=== PATIENT | female | born 1965 | race Caucasian/White ===

== ENCOUNTER → 2017-07-06 | Outpatient (CLI) | payer OTHER ==
[~2017-07-06] MED LIST: BUPR-83 PO; CLIN300C2 PO; HYDR-5688 PO; LEVO112T2 PO; MULT-506 PO; PENI250T3 PO; PRED10PA4 PO; SYN112 PO
--- NOTE | 2017-07-06 16:48 | DIAGNOSTIC IMAGING REPORT ---
ULTRASOUND OF THE PELVIS CLINICAL HISTORY: Postmenopausal vaginal bleeding. COMPARISON STUDY: Pelvic ultrasound dated 03/06/2009. TECHNIQUE: Real-time, grayscale, and color flow sonography of the pelvis is performed both transabdominally and endovaginally. Images are reviewed in the transverse and longitudinal planes. FINDINGS: Uterus: The retroflexed uterus is normal in size and echotexture, measuring 7.7 x 3.7 x 5.0 cm. Endometrium: The endometrium is normal in appearance, and the endometrial stripe is normal in thickness measuring up to 0.7 cm. Ovaries: The right ovary is normal as visualized, measuring 2.0 x 1.8 x 1.2 cm. The left ovary was not seen normal Doppler waveforms are shown within the right ovary. Pelvis: There is no free fluid in the cul-de-sac. No concerning adnexal lesion is seen. IMPRESSION: 1. The endometrial stripe measures up to 7 mm in thickness. This may be abnormally thickened as the patient is reportedly postmenopausal. Follow-up with the patient's chicken boner is recommended. 2. The right ovary is normal as visualized. The left ovary was not seen. Electronically signed by: Panda Tomlinson M.D. 07/06/2017 4:46 PM Dictated Date/Time: 07/06/2017 4:32 PM
--- NOTE | 2017-07-06 16:48 | DIAGNOSTIC IMAGING REPORT ---
ULTRASOUND OF THE PELVIS CLINICAL HISTORY: Postmenopausal vaginal bleeding. COMPARISON STUDY: Pelvic ultrasound dated 03/06/2009. TECHNIQUE: Real-time, grayscale, and color flow sonography of the pelvis is performed both transabdominally and endovaginally. Images are reviewed in the transverse and longitudinal planes. FINDINGS: Uterus: The retroflexed uterus is normal in size and echotexture, measuring 7.7 x 3.7 x 5.0 cm. Endometrium: The endometrium is normal in appearance, and the endometrial stripe is normal in thickness measuring up to 0.7 cm. Ovaries: The right ovary is normal as visualized, measuring 2.0 x 1.8 x 1.2 cm. The left ovary was not seen normal Doppler waveforms are shown within the right ovary. Pelvis: There is no free fluid in the cul-de-sac. No concerning adnexal lesion is seen. IMPRESSION: 1. The endometrial stripe measures up to 7 mm in thickness. This may be abnormally thickened as the patient is reportedly postmenopausal. Follow-up with the patient's stress test technician is recommended. 2. The right ovary is normal as visualized. The left ovary was not seen. Electronically signed by: Panda Tomlinson M.D. 07/06/2017 4:46 PM Dictated Date/Time: 07/06/2017 4:32 PM
== END | disposition home or self-care (01) ==
LOC: C.ULTR 15:23
PROVIDERS: ATTEND Family Medicine
DX: N93.9 Abnormal uterine and vaginal bleeding, unspecified (principal); N95.0 Postmenopausal bleeding

== ENCOUNTER 2017-07-14 05:19 | Emergency (ER) | payer OTHER ==
[~2017-07-14] VITALS: Ht 182.9 cm; Wt 89.1 kg
[~2017-07-14 05:19] MED LIST changes: -CLIN300C2 PO; -HYDR-5688 PO; -LEVO112T2 PO; -PENI250T3 PO
[2017-07-14 05:22] VITALS: TEMP 37.5; Ht 182.9 cm; Wt 89.1 kg
[2017-07-14] MEDS ORDERED: CLINDAMYCIN IV 900 MG in DEXTROSE 5% ADD-VANTAGE 100ML 100 ML IV ONE (05:45)
[2017-07-14] MEDS ORDERED: OPTIRAY 320 IV PRN ×2 (05:45)
--- NOTE | 2017-07-14 05:58 | EMERGENCY ROOM VISIT NOTE ---
History First contact with patient: 05:27 Chief Complaint: DENTAL PAIN Stated Complaint: SWOLLEN FACE, ABCESS TOOTH Nursing Triage Summary: pt ambulatory to triage, states "over the weekend i was having tooth pain, yesterday i went to see the dentist. he gave me antibiotics and something for pain. but it did nothing for the swelling, it like got worse over night." pt states dentist is planning to pull tooth on thursday but was recommended to come to the ER when she called dentist this am. placed on norco and penicillin. swelling noted on left side of face. History of Present Illness The patient is a 51 year old female who presents to the Emergency Room with complaints of left lower dental pain. The patient states that she has had dental pain for the past 4 days. She reports that she has had issues with the tooth previously and figured that the pain would go away. She states the pain became constant and she decided to see a dentist yesterday. She states that the dentist placed her on penicillin and [place] and scheduled an appointment for an extraction next week. She states that overnight, she noticed increased swelling of the left side of the face. She states it has been hard for her to swallow. She denies fevers or difficulty breathing. She rates her discomfort a 6/10 and states the pain is throbbing. The pain has slightly improved since starting the penicillin and [place]. Review of Systems A complete 10 point review of systems was reviewed with the patient with pertinent positives and negatives as per history of present illness. All else were negative. Past Medical/Surgical History Medical Problems: (1) Hypothyroidism Social History Smoking Status: Never Smoker Alcohol Use: none Marital Status: Housing Status: lives with family, lives with significant other Occupation Status: employed Current/Historical Medications Scheduled Bupropion (Wellbutrin), 200 MG PO BID Clindamycin Hcl (Cleocin), 300 MG PO QID Levothyroxine Sodium (Synthroid), 112 MCG PO DAILY Penicillin V Potassium (Veetids), 1 TAB PO UD Scheduled PRN Hydrocodone/Acetaminophen 5MG/325MG ([place] 5MG/325MG), 1 TABLET PO UD PRN for Pain Physical Exam Vital Signs Date Time Temp Pulse Resp B/P (MAP) Pulse Ox O2 Delivery O2 Flow Rate FiO2 07/14/17 05:22 37.5 79 18 123/64 95 Room Air Physical Exam VITALS: Vitals are noted on the nurse's note and reviewed by myself. Vital signs stable. GENERAL: This is a 51-year-old female, in no acute distress, well-developed well -nourished. SKIN: The skin was without rashes. EARS: External auditory canals clear, tympanic membranes pearly cortes without erythema or effusion bilaterally. EYES: Pupils equal round and reactive to light and accommodation. MOUTH: There is left lower facial swelling with tenderness to palpation. Mucous membranes are moist. There is no evidence of an obvious drainable abscess within the mouth. No drainage. No tenderness to palpation of the fourth mouth. Airway patent. NECK: Supple without nuchal rigidity. No lymphadenopathy. HEART: Regular rate and rhythm without murmurs gallops or rubs. LUNGS: Clear to auscultation bilaterally without wheezes, rales or rhonchi. NEURO: Patient was alert and oriented to person place and time. Medical Decision & Procedures ER Provider Diagnostic Interpretation: Per statrad interpretation: CT MAXILLOFACIAL: Moderate soft tissue swelling about the left mandible which may represent cellulitis. No definite evidence of a dental abscess. No acute fracture or osteomyelitis. Minimal mucosal thickening of paranasal sinuses. Radiologist: Beto Asif MD Laboratory Results 07/14/17 05:40 Red Blood Count 4.56, Mean Corpuscular Volume 89.7, Mean Corpuscular Hemoglobin 30.5, Mean Corpuscular Hemoglobin Concent 34.0, Mean Platelet Volume 10.2, Neutrophils (%) (Auto) 72.1, Lymphocytes (%) (Auto) 14.7, Monocytes (%) (Auto) 9.7, Eosinophils (%) (Auto) 3.1, Basophils (%) (Auto) 0.2, Neutrophils # (Auto) 6.09, Lymphocytes # (Auto) 1.24, Monocytes # (Auto) 0.82, Eosinophils # (Auto) 0.26, Basophils # (Auto) 0.02 07/14/17 05:40 Test 07/14/17 05:40 07/14/17 05:47 White Blood Count 8.45 K/uL (4.8-10.8) Red Blood Count 4.56 M/uL (4.2-5.4) Hemoglobin 13.9 g/dL (12.0-16.0) Hematocrit 40.9 % (37-47) Mean Corpuscular Volume 89.7 fL (80-100) Mean Corpuscular Hemoglobin 30.5 pg (25-34) Mean Corpuscular Hemoglobin Concent 34.0 g/dl (32-36) Platelet Count 251 K/uL (130-400) Mean Platelet Volume 10.2 fL (7.4-10.4) Neutrophils (%) (Auto) 72.1 % Lymphocytes (%) (Auto) 14.7 % Monocytes (%) (Auto) 9.7 % Eosinophils (%) (Auto) 3.1 % Basophils (%) (Auto) 0.2 % Neutrophils # (Auto) 6.09 K/uL (1.4-6.5) Lymphocytes # (Auto) 1.24 K/uL (1.2-3.4) Monocytes # (Auto) 0.82 K/uL (0.11-0.59) Eosinophils # (Auto) 0.26 K/uL (0-0.5) Basophils # (Auto) 0.02 K/uL (0-0.2) RDW Standard Deviation 42.6 fL (36.4-46.3) RDW Coefficient of Variation 13.0 % (11.5-14.5) Immature Granulocyte % (Auto) 0.2 % Immature Granulocyte # (Auto) 0.02 K/uL (0.00-0.02) Est Creatinine Clear Calc Drug Dose 102.1 ml/min Estimated GFR () 97.6 Estimated GFR (Non- 84.2 BUN/Creatinine Ratio 19.4 (10-20) Calcium Level 8.8 mg/dl (8.5-10.1) Bedside Hemoglobin 15.3 g/dl (12.0-16.0) Bedside Hematocrit 45 % (37-47) Bedside Sodium 142 mEq/L (135-144) Bedside Potassium 4.1 mEq/L (3.3-5.0) Bedside Chloride 101 mEq/L (101-112) Bedside Total CO2 28 mEq/l (24-31) Anion Gap 19.0 mmol/L (16-25) Bedside Blood Urea Nitrogen 17 mg/dl (7-18) Bedside Creatinine 0.8 mg/dl (0.6-1.3) Bedside Glucose (other) 124 mg/dl (70-99) Bedside Ionized Calcium (Nathan) 1.17 mmol/l (1.12-1.32) Medications Administered Medications (Trade) Dose Ordered Sig/Raven Route Start Time Stop Time Status Last Admin Dose Admin Clindamycin Phosphate 900 mg/ Dextrose 106 ml @ 100 mls/hr ONE ONCE IV 07/14/17 05:45 07/14/17 06:48 DC 07/14/17 06:03 100 MLS/HR ED Course The patient was evaluated as above. Labs were drawn and IV access was obtained. Patient was medicated with a dose of clindamycin IV. CT of the face with IV contrast was performed and read by radiology as above. Patient was reevaluated and findings discussed. Discharge instructions were reviewed with the patient. The patient verbalized understanding of my assessment and treatment plan and was discharged home in good condition. Medical Decision Differential diagnosis includes dental abscess, dental infection, Luciano's angina, among others. The patient is a 51-year-old female who presents today complaining of worsening dental infection. Labs revealed no leukocytosis. CT was performed and showed cellulitis, but no drainable abscess. Patient was given IV clindamycin and will be switched to clindamycin as an outpatient. She was advised to return here for worsening symptoms. Based on the patient's presentation and work up, I feel the patient is stable for outpatient treatment. The patient was educated to return to the emergency department for any worsening of their current condition or new/concerning symptoms. She will follow up with her dentist as prescribed. Medication Reconcilliation Current Medication List: was personally reviewed by me Blood Pressure Screening Patient's blood pressure: Normal blood pressure Impression Primary Impression: Dental infection Departure Information Dispostion Home / Self-Care Condition GOOD Prescriptions Clindamycin Hcl (CLEOCIN) 300 Mg Cap 300 MG PO QID for 10 Days, #40 CAP Prov: Gabriela Perez PA-C 07/14/17 Referrals Cande Gonzalez D.O. (PCP) Patient Instructions My [facility] Additional Instructions You have been treated in the Emergency Department for Dental Pain. You were prescribed Clindamycin to be taken four times daily as prescribed. This is an antibiotic. All antibiotics have the potential to cause diarrhea. Stop this medication and contact a medical provider if you were to develop any significant adverse side effects including: wheezing, shortness of breath, passing out, vomiting, or a diffuse rash. Always take antibiotics as directed and COMPLETE the ENTIRE course regardless of the improvement of your symptoms. For pain control, you can use the following [id number] medicines (if >12 yo): - Regular strength (325mg/tab) Tylenol (acetaminophen) 2 tabs every 4-6 hours as needed. Do not exceed 12 tablets in a 24 hour period. Avoid taking more than 4 grams (4000 mg) of Tylenol per day. This includes any other sources of acetaminophen you may take on a regular basis. - Regular strength (200 mg/tab) Advil (ibuprofen) 1-2 tabs every 4-6 hours as needed. Do not exceed a dose of 3200 mg per day. Follow up with your dentist as scheduled. Return to the emergency department if you develop the following symptoms despite treatment course outlined above: fever, worsening pain, increased redness, swelling, or pus-like discharge.
[2017-07-14 06:00] LABS: ISTAT CREATININE 0.8 mg/dl (0.6-1.3); ISTAT IONIZED CALCIUM 1.17 mmol/l (1.12-1.32); ISTAT POTASSIUM 4.1 mEq/L (3.3-5.0)
[2017-07-14 06:27] LABS: BASO % 0.2 %; BASO ABS # 0.02 K/uL (0-0.2); EOS % 3.1 %; EOS ABS # 0.26 K/uL (0-0.5); HEMATOCRIT 40.9 % (37-47); HEMOGLOBIN 13.9 g/dL (12.0-16.0); IG# 0.02 K/uL (0.00-0.02); LYMPH % 14.7 %; LYMPH ABS # 1.24 K/uL (1.2-3.4); MEAN CELL VOLUME 89.7 fL (80-100); MEAN CORPUSCULAR HEMOGLOBIN 30.5 pg (25-34); MEAN PLATELET VOLUME 10.2 fL (7.4-10.4); MONO % 9.7 %; MONO ABS # 0.82 K/uL (0.11-0.59); NEUT % 72.1 %; NEUT ABS # 6.09 K/uL (1.4-6.5); PLATELET COUNT 251 K/uL (130-400); RED CELL DISTRIBUTION WIDTH SD 42.6 fL (36.4-46.3); WHITE BLOOD COUNT 8.45 K/uL (4.8-10.8)
[2017-07-14 06:45] LABS: CALCIUM 8.8 mg/dl (8.5-10.1); CREATININE 0.8 mg/dl (0.60-1.20); POTASSIUM 3.9 mmol/L (3.5-5.1)
[2017-07-14] MEDS ORDERED: LEVO112T2 PO (06:45)
[2017-07-14] MEDS ORDERED: BUPR-83 PO (06:45)
[2017-07-14] MEDS ORDERED: PENI250T3 PO (06:47)
[2017-07-14] MEDS ORDERED: HYDR-5688 PO (06:47)
[2017-07-14] MEDS ORDERED: CLIN300C2 PO (06:52)
[2017-07-14 07:06] VITALS: BP 130/67; PULSE 64; O2SAT 97
--- NOTE | 2017-07-15 08:22 | DIAGNOSTIC IMAGING REPORT ---
CT SCAN OF THE FACIAL BONES WITH IV CONTRAST CLINICAL HISTORY: Left-sided facial pain. COMPARISON STUDY: No priors. TECHNIQUE: High-resolution CT scan of the facial bones is performed following the IV administration of 93 cc of Optiray 320. Images are reviewed in the axial, sagittal, and coronal planes. IV contrast was administered without complication. A dose lowering technique was utilized adhering to the principles of ALARA. CT DOSE: 675.07 mGy.cm FINDINGS: The skeletal structures are well mineralized. There is no evidence of facial bone fracture. The bony orbits are intact and the orbital contents are within normal limits. The zygomatic arches, nasal bones, and pterygoid plates are preserved. The maxilla and mandible are intact. Degenerative change is noted in the temporomandibular joints. There are no layering blood products within the paranasal sinuses. The sinuses and mastoids are clear. The visualized calvarium and upper cervical spine are maintained. Partially imaged brain parenchyma is within normal limits. Scattered dental caries are identified. There is a large periapical lucency around a left mandibular molar. There is significant soft tissue infiltration and edema seen in the superficial and deep soft tissues overlying the left aspect of the mandible consistent with cellulitis. No organized fluid collection is identified to confirm the presence of abscess. IMPRESSION: 1. There is no evidence of facial bone fracture. 2. There is a large periapical lucency involving a left mandibular molar. 3. There is evidence of facial cellulitis overlying the left mandible. No abscess is clearly identified. 4. Additional scattered dental caries are noted. Follow-up with dentistry is recommended. Electronically signed by: Panda Tomlinson M.D. 07/14/2017 7:17 AM Dictated Date/Time: 07/14/2017 7:06 AM
== END 2017-07-14 07:06 | disposition home or self-care (01) ==
LOC: C.EDB 05:20
DX: K04.7 Periapical abscess without sinus (principal); K12.2 Cellulitis and abscess of mouth; E03.9 Hypothyroidism, unspecified

== ENCOUNTER → 2017-07-27 | Outpatient (CLI) | payer OTHER ==
[~2017-07-27] MED LIST changes: +BUPR200T2 PO; +HYDR-5688 PO; +LEVO112T2 PO; +PENI250T3 PO; -PRED10PA4 PO; -SYN112 PO
== END | disposition home or self-care (01) ==
LOC: C.PAPS 09:39
PROVIDERS: ATTEND Obstetrics & Gynecology
DX: N95.0 Postmenopausal bleeding (principal)

== ENCOUNTER → 2017-08-24 | Day surgery (SDC) | payer OTHER ==
[2017-08-03 09:50] VITALS: Ht 182.9 cm; Wt 86.8 kg
--- NOTE | 2017-08-17 17:36 | HISTORY & PHYSICAL EXAMINATION ---
DATE OF ADMISSION: 08/24/2017 ADMITTING DIAGNOSES: 1. Postmenopausal bleeding. 2. Thickened endometrial lining on ultrasound. ADMISSION HISTORY: The patient is a 51-year-old 1, para 1 postmenopausal female who is admitted for diagnostic hysteroscopy and D&C for postmenopausal bleeding and thickened endometrial lining. The patient went to the menopause at approximately age 46 and had no bleeding until July of this year when she had several days of pink spotting. She discussed this with her primary care provider who ordered a pelvic ultrasound and gynecological followup. The patient had an episode of menorrhagia with endometrial polyp for which she underwent a D&C hysteroscopy in 2008. Ultrasound was reviewed with the patient. Treatment options were discussed and the patient is admitted for the above listed procedure. PAST MEDICAL HISTORY: OB: x1. STAFF PHYSICIAN: As above. MEDICAL: Hypothyroidism. SURGICAL: Worth teeth extraction. ALLERGIES: No known drug allergies. SOCIAL HISTORY: No smoking. FAMILY HISTORY: Noncontributory. REVIEW OF SYSTEMS: As per HPI. ADMISSION PHYSICAL EXAMINATION: GENERAL: Shows a pleasant female, in no acute distress. VITAL SIGNS: Blood pressure 120/82, height of 5 feet 10-1/2 inches and weight 187 pounds. HEENT EXAMINATION: Unremarkable. NECK: Supple. LUNGS: Clear. HEART: With a regular rhythm and rate. ABDOMEN: Soft, nontender. PELVIC: Shows normal external genitalia, vaginal wall pink and rugated. Cervical os multiparous and closed. Bimanual examination shows an anterior mobile uterus. Adnexa show no palpable masses. RECTAL: Confirmatory. EXTREMITIES: Shows no deep calf tenderness. NEUROLOGIC: Grossly intact. IMPRESSION: A 51-year-old G1, P1 postmenopausal bleeding, thickened endometrial lining on ultrasound. PLAN: Risks, benefits, and alternatives to the surgery have been discussed. While the benefits will be evaluation of the endometrial lining and removal of any tissue, the risks are bleeding, infection, inadvertent perforation of the uterus, failure to diagnose and/or treat the problem. The patient understands this. Permit has been signed and she wishes to proceed.
[~2017-08-24] VITALS: Ht 182.9 cm; Wt 86.8 kg
[~2017-08-24] MED LIST changes: +ATROPINE SULFATE 0.1 MG/ML 5ML SYR IV PRN; -BUPR-83 PO; +DEXAMETHASONE SOD INJ 4 MG/ML VIAL ONE; +EpHEDrine SULFATE INJ 50 MG/ML AMP IV PRN; +FENTANYL CITRATE INJ 50 MCG/1 ML 2 ML VIAL IV PRN; +FENTANYL CITRATE INJ 50 MCG/1 ML 2 ML VIAL ONE; -HYDR-5688 PO; +HYDROCODONE/ACETAMIN 5/325MG TAB PO PRN; +IBUPROFEN 600 MG TAB PO PRN; +KETOROLAC TROMETHAMINE 30 MG/ML VIAL IV. PRN; +KETOROLAC TROMETHAMINE 30 MG/ML VIAL ONE; +LACTATED RINGER'S 1000ML 1,000 ML IV SCH; +LIDOCAINE HCL 2% 2 ML VIAL (20MG/ML) ONE; +MIDAZOLAM HCL 1 MG/ML 2ML VIAL ONE; +ONDANSETRON INJ 2 MG/ML 2 ML VIAL IV PRN; +ONDANSETRON INJ 2 MG/ML 2 ML VIAL ONE; -PENI250T3 PO; +PROPOFOL IV EMULSION 10 MG/ML 20 ML VIAL IV ONE; +SODIUM CHLORIDE 0.9% 1000ML 1,000 ML IV SCH
--- NOTE | 2017-08-24 06:58 | History & Physical Bridge - SC ---
H&P Re-Evaluation Bridge Note: I have examined the patient, reviewed the History & Physical and in the interval since the performance of the History & Physical I have noted the following changes of clinical significance: Included in the definition of a D&C would be the removal of any tissue, including an endometrial polyp (polypectomy) .
--- NOTE | 2017-08-24 07:25 | [facility] Post Operative Brief Note ---
Immediate Operative Summary Operative Date Aug 24, 2017. Pre-Operative Diagnosis Post menopausal bleeding Post-Operative Diagnosis Same as pre-op Procedure(s) Performed Dilatation And Curettage, Diagonstic Hysteroscopy, Polypectomy with Myosure Surgeon Social Insurance Administrator Surgeon(s) None Estimated Blood Loss Minimal Findings See Below (polypectomy performed) denuded endometrium with possible small right lateral fundal polyp, D&C and Specimens A.Endometrial curettings B.Uterine polyp Drains None Anesthesia Type General Complication(s) none Disposition Accompanied Pt To Recovery: yes Disposition: Recovery Room / PACU
--- NOTE | 2017-08-24 07:28 | Discharge Instructions-SurgCtr ---
Discharge Instructions Date of Service Aug 24, 2017. Visit Reason for Visit: Post Menopausal Bleeding, Thickened Endometrium Discharge Discharge Diagnosis / Problem: same Discharge Goals Goal(s): Therapeutic intervention Activity Recommendations Activity Limitations: as noted below Anesthesia . Post Anesthesia Instructions: If you have had General Anesthesia or IV Sedation: * Do not drive today. * Resume driving when surgeon permits. * Do not make important decisions or sign legal documents today. * Call surgeon for: 1. Temperature elevations greater than 101 degrees F. 2. Uncontrollable pain. 3. Excessive bleeding. 4. Persistent nausea and vomiting. 5. Medication intolerance (nausea, vomiting or rash). * For nausea and vomiting use only clear liquids such as: tea, soda, bouillon until nausea subsides, then gradually increase diet as tolerated. * If you have any concerns or questions, call your surgeon's office. If physician is unavailable and it is an emergency, call 911 or go to the nearest emergency room. . Instructions / Follow-Up Instructions / Follow-Up ACTIVITY RECOMMENDATIONS: * Avoid tampons, douching, hot tubs, pools, and intercourse until bleeding has stopped. * May shower as usual. * No strenuous activity for 24-48 hours. After 24-48 hours, you may do anything you feel like doing (driving and sports are okay). SPECIAL CARE INSTRUCTIONS: Special Diet: * Mild nausea may occur in the immediate post-operative period. * Take clear liquids such as tea, cola or bouillon until all nausea has subsided; you may then resume your normal diet. Special Care: * Light bleeding and vaginal spotting can last from a few days to 3-4 weeks. Call your doctor if bleeding becomes heavier than the heaviest part of your period. * Check your temperature twice a day for one week. If it goes above 100.4 degrees Fahrenheit (38.0 Celsius), notify your doctor. * Call your doctor's office for an appointment for 6 weeks after your surgery. FOLLOW-UP VISIT: Call your doctor's office for an appointment for 6 weeks after your surgery. Diet Recommendations Home Diet: resume previous diet Procedures Procedures Performed: Dilatation And Curettage, Diagonstic Hysteroscopy, Polypectomy with Myosure Pending Studies Studies pending at discharge: yes List of pending studies: Pathology Medical Emergencies . Who to Call and When: Medical Emergencies: If at any time you feel your situation is an emergency, please call 911 immediately. . Non-Emergent Contact Non-Emergency issues call your: Frame Changer Call Non-Emergent contact if: you have a fever, temperature is above 100.5 . . "Provider Documentation" section prepared by Vinicius Doan. .
--- NOTE | 2017-08-24 08:12 | OPERATIVE REPORT ---
DATE OF OPERATION: 08/24/2017 PREOPERATIVE DIAGNOSES: 1. Postmenopausal bleeding. 2. Thickened endometrium on ultrasound. POSTOPERATIVE DIAGNOSES: Same. PROCEDURE PERFORMED: 1. Diagnostic hysteroscopy. 2. D and C. 3. Polypectomy. SURGEON: Dr. Doan. ANESTHESIA: General. FINDINGS: Hysteroscopic evaluation of the endometrium showed an essentially denuded endometrium with the uterine length of 8 cm. Initial D and C performed. Repeat hysteroscopic examination showed what appeared to be a polyp at the right fundal area of the uterus which was excised and sent separately for pathological evaluation. PROCEDURE IN DETAIL: The patient was taken to the operating room and after general anesthesia was placed in a dorsal lithotomy position and draped and prepped in usual fashion. Bladder was drained off any residual urine. Single tooth tenaculum was used to grasp the anterior lip of the cervix. The uterus was sounded to 7 cm. The cervix was then dilated with Paz dilators to a Paz #25. The operative hysteroscope was inserted into the endometrial cavity with the description as above. Hysteroscope was removed and a sharp curette was introduced into the uterine cavity. All 4 quadrants were curettaged and sent for pathological evaluation. Repeat hysteroscopic evaluation at this time showed what appeared to be a possible small polyp at the right fundal area of the uterus using the MyoSure of resection instrument. This was resected and sent for pathological evaluation. Hysteroscope removed. Fluid deficit for the procedure was 0. The patient taken out of dorsal lithotomy to recovery room in satisfactory condition. I attest to the content of the Intraoperative Record and any orders documented therein. Any exception s are noted below.
[2017-08-24 08:53] VITALS: BP 114/73; PULSE 57; O2SAT 98
--- NOTE | 2017-08-24 08:58 | Anesthesiology Progress Note ---
Anesthesia Post Op Note Date & Time Aug 24, 2017 at 08:58 Vital Signs Pain Intensity: 0 Vital Signs Past 12 Hours Date Time Temp Pulse Resp B/P (MAP) Pulse Ox O2 Delivery O2 Flow Rate FiO2 08/24/17 08:53 57 16 114/73 (87) 98 Room Air 08/24/17 08:21 36.5 62 16 123/76 (92) 98 Room Air 08/24/17 08:06 54 14 08/24/17 08:06 53 14 131/66 98 08/24/17 08:03 36.7 57 16 131/66 98 Room Air 08/24/17 08:01 55 18 124/68 99 08/24/17 08:01 56 18 08/24/17 07:56 58 26 111/69 98 08/24/17 07:56 60 26 08/24/17 07:51 54 16 121/78 100 08/24/17 07:51 55 16 08/24/17 07:46 51 12 08/24/17 07:46 53 12 116/70 100 08/24/17 07:41 56 15 08/24/17 07:41 56 15 117/70 100 08/24/17 07:36 52 12 128/78 100 08/24/17 07:36 51 12 08/24/17 07:32 139/78 08/24/17 07:31 36.2 58 12 139/78 98 Mask 6 08/24/17 07:31 58 08/24/17 07:31 58 98 08/24/17 06:26 36.6 80 18 107/71 (83) 97 Room Air Notes Mental Status: alert / awake / arousable, participated in evaluation Pt Amnestic to Procedure: Yes Nausea / Vomiting: adequately controlled Pain: adequately controlled Airway Patency, RR, SpO2: stable & adequate BP & HR: stable & adequate Hydration State: stable & adequate Anesthetic Complications: no major complications apparent
== END | disposition home or self-care (01) ==
LOC: X.SURG 06:13
PROVIDERS: ATTEND Obstetrics & Gynecology
DX: N95.0 Postmenopausal bleeding (principal); R93.8 Abnormal findings on diagnostic imaging of other specified body structures; E03.9 Hypothyroidism, unspecified

== ENCOUNTER 2020-10-22 05:40 | Inpatient (IN) ==
[2020-10-22 06:06] LABS: Basophils # (auto) 0.03 K/uL (0-0.2); Basophils % (auto) 0.7 %; Eosinophils # (auto) 0.19 K/uL (0-0.5); Eosinophils % (auto) 4.1 %; Hematocrit (blood only) 41.1 % (37-47); Hemoglobin 13.7 g/dL (12.0-16.0); Lymphocytes # (auto) 1.72 K/uL (1.2-3.4); Lymphocytes % (auto) 37.4 %; Mean Corpuscular Hemoglobin 30.3 pg (25-34); Mean Corpuscular Hgb Conc 33.3 g/dL (32-36); Mean Corpuscular Volume 90.9 fL (80-100); Mean Platelet Volume 9.9 fL (7.4-10.4); Monocytes # (auto) 0.64 K/uL (0.11-0.59); Monocytes % (auto) 13.9 %; Neutrophils # (auto) 2.02 K/uL (1.4-6.5); Neutrophils % (auto) 43.9 %; Platelet Count 255 K/uL (130-400); RDW Coefficient of Variation 13.1 % (11.5-14.5); RDW Standard Deviation 43.6 fL (36.4-46.3); Red Blood Count 4.52 M/uL (4.2-5.4)
--- NOTE | 2020-10-22 06:14 | Emergency Department Note ---
Impression & Plan Acute non-ST elevation myocardial infarction (NSTEMI) ED Provider Note NAME: HAILEE KAY AGE: 54 SEX: F ARRIVES VIA: Walk-In INFORMANT: Patient ED PROVIDER(S): Jacqueline Horn DO CHIEF COMPLAINT: chest tightness PLAN: Disposition: Admit to the [facility] service Condition: Stable MEDICAL DECISION MAKING: This is a 54-year-old female patient who awoke at 2:30 AM with tightness in her chest. She tried taking Tylenol for relief but lying flat seemed to make her symptoms worse. EKG was unremarkable but we performed 2 troponins and the second 1 was elevated. The patient's chest tightness did not go away with a GI cocktail but was slightly relieved initially with Toradol. Certainly the el evated troponin is concerning for a non-ST segment elevation AL. The patient was given oral aspirin and will be started on heparin. The patient's heart rate is at baseline in the 50s. Discussed the case with the [facility]ist and they will evaluate for further management. Triage Nursing notes reviewed and agree with them. Prior medical records reviewed Vital Signs: reviewed and remarkable for hypertension Differential diagnosis: Costochondritis, cardiac ischemia, anxiety, myocarditis ER treatment provided: GI cocktail IV Toradol IV heparin bolus IV heparin drip Diagnostics interpreted by me: ECG: Sinus bradycardia at [address]/T wave changes or signs of ischemia. Repeat EKG: Sinus bradycardia at [address] segment elevation or signs of ischemia. Cardiac Monitoring: Normal sinus rhythm at [address] or T wave changes. Laboratory studies: See below Imaging studies: As per my interpretation Portable chest x-ray: No cardiomegaly or pulmonary infiltrates or consolidation HPI: 54/F arrives for evaluation of chest pain. Patient explains that she woke at 2:30 AM with some tightness in her chest. She took a Tylenol but got no relief. She tried laying flat but this seemed to make her symptoms worse. Patient denies any family history. She denies any shortness of breath. ROS: See above HPI for pertinent positives & negatives. A total of 10 systems reviewed and were otherwise negative. PAST MEDICAL HISTORY:Hypothyroidism; depression PAST SURGICAL HISTORY:See Below FAMILY HISTORY:See Below SOCIAL HISTORY:See Below HOME MEDICATIONS:See list ALLERGIES:None VITALS:See Below PHYSICAL EXAMINATION: HEENT: Head - normocephalic and atraumatic Pupils are equal, round, and reactive to light. Extraocular eye muscles are intact, and sclera are anicteric. Nose - moist nasal mucosa without discharge. Mouth - moist buccal mucosa. Oropharynx is nonerythematous and there is no tonsillar exudate or edema noted. Neck: Supple; no JVD, nuchal rigidity, cervical lymphadenopathy, or auscultated bruits. Heart: Regular rate and rhythm. There is a normal S1 and S2 with no murmurs, clicks, or gallops appreciated. Lungs: Clear to auscultation bilaterally with no wheezes, rales, or rhonchi. Abdomen: Soft, completely nontender, nondistended, with good bowel sounds. There are no palpable pulsatile masses or hepatosplenomegaly. There is no guarding, rigidity, or rebound noted. Extremities: No evidence of cyanosis, clubbing, or edema. There are easily palpable peripheral pulses. Skin: warm and dry with good turgor and no rashes. ED COURSE: Times/Reassessments: 0555: The patient was evaluated in room C9. A complete history and physical was performed. An IV lock was initiated and labs were drawn as above. An order was placed for continuous cardiac monitoring. Patient was in sinus bradycardia at 67 A twelve-lead EKG was obtained A portable chest x-ray was performed. 0650:The patient was given a GI cocktail with no relief of the discomfort. Patient then was given IV Toradol which did give her some relief of her discomfort. A repeat troponin was performed and was elevated compared to the first. This was concerning for NSTEMI. She was then given a dose of 324 mg of aspirin along with a bolus of IV heparin and will be started on a heparin drip. I discussed the case with the [facility] and she will be evaluated for further inpatient care and cardiology evaluation. I have personally spent greater than 40 minutes of critical care time in the direct management of this patient. This includes bedside care, interpretation of diagnostic studies, and testing, discussion with consultants, patient, and family members, and other required patient management activities. This 40 minutes is in excess of all separately billable procedures. Jacqueline Horn DO Past Med/Surg History Medical History Acute non-ST elevation myocardial infarction (NSTEMI) Chronic venous insufficiency Endometrial thickening on ultrasound Generalized osteoarthritis Post-menopausal bleeding Surgical History H/O dilation and curettage Family History (Updated 10/24/20 @ 10:38 by Tracey Durbin RN) Sister Diabetes Father Lung cancer Uncle Myocardial infarction Other Cancer Depression Denies family history of Ovarian cancer Prostate cancer Breast cancer Colorectal cancer Social History Smoking Status: Never smoker Second Hand Exposure: No; Do You Dip or Chew Tobacco: No; Tobacco Cessation Education Requested by Patient: No Hx Alcohol Use: No Hx Substance Use: No Preferred Language: Portuguese Communication Ability: Effective Visual Impairment: No Limitations Hearing Ability: Normal Litigation Support Analyst Required: No Beliefs That Will Affect Care: None marital status: Current Living Situation: Spouse current occupational status: employed current occupation: Works at [employer] Feels Safe at Home: Yes Childhood Exposure to Second-Hand Smoke: Yes Dental Care, Regularly: Yes Physical Activity Frequency: Daily Seatbelt Use: always Sunscreen Use: No Assistive Devices: None Allergies Allergies Allergy/AdvReac Type Severity Reaction Status Date / Time No Known Allergies Allergy Verified 10/22/20 07:33 Home Meds Home Medications Medication Instructions Recorded Confirmed acetaminophen [Tylenol] 325 mg PO QID PRN 10/22/20 10/24/20 Previous Rx's Medication Instructions Recorded multivitamin 1 tab PO DAILY #30 tab 11/05/18 bupropion HCl 200 mg tablet,12 hr 200 mg PO BID #180 ea 02/29/20 sustained-release levothyroxine 100 mcg tablet 100 mcg PO DAILY #90 tab 02/29/20 aspirin 81 mg PO QAM #30 tab 10/23/20 atorvastatin 40 mg PO QPM #30 tab 10/23/20 clopidogrel 75 mg PO QAM #30 tab 10/23/20 lisinopril 2.5 mg PO QAM #30 tab 10/23/20 nitroglycerin [Nitrostat] 0.4 mg SUBLINGUAL Q5M PRN #30 tab 10/23/20 Results & Data (ED) Vital Signs Vital Signs - 24 hr 10/22/20 05:41 10/22/20 05:55 10/22/20 05:57 Temperature 36.2 C L Temperature Source Temporal Artery Scan Pulse Rate 67 56 L Pulse Rate from SpO2 Sensor 55 L Respiratory Rate 20 19 Respiratory Effort / Characteristics Non-Labored Respiratory Depth Normal Blood Pressure 151/75 H Blood Pressure Mean 100 Blood Pressure Position Sitting Pulse Oximetry 97 98 98 Oxygen Delivery Method Room Air Room Air Sepsis Recent Fever Within 48 Hours No Sepsis New/Unexplained Change in Mental Status N/A Sepsis Action Taken by Nursing No Action Required 10/22/20 06:00 10/22/20 06:12 10/22/20 06:58 Temperature Temperature Source Pulse Rate 58 L 57 L 73 Pulse Rate from SpO2 Sensor 56 L 57 L 71 Respiratory Rate 20 18 15 Respiratory Effort / Characteristics Respiratory Depth Blood Pressure 135/72 135/72 145/79 H Blood Pressure Mean 93 93 101 Blood Pressure Position Pulse Oximetry 99 96 97 Oxygen Delivery Method Sepsis Recent Fever Within 48 Hours Sepsis New/Unexplained Change in Mental Status Sepsis Action Taken by Nursing 10/22/20 08:30 Temperature Temperature Source Pulse Rate 58 L Pulse Rate from SpO2 Sensor 57 L Respiratory Rate 13 Respiratory Effort / Characteristics Respiratory Depth Blood Pressure 125/75 Blood Pressure Mean 91 Blood Pressure Position Pulse Oximetry 98 Oxygen Delivery Method Sepsis Recent Fever Within 48 Hours Sepsis New/Unexplained Change in Mental Status Sepsis Action Taken by Nursing Laboratory Data Result diagrams: 10/23/20 05:56 10/23/20 05:56 Lab Results 10/22/20 10/22/20 10/22/20 Range/Units 05:55 05:55 05:55 WBC 4.60 L (4.8-10.8) K/uL RBC 4.52 (4.2-5.4) M/uL Hgb 13.7 (12.0-16.0) g/dL Hct 41.1 (37-47) % MCV 90.9 (80-100) fL MCH 30.3 (25-34) pg MCHC 33.3 (32-36) g/dL RDW Std Deviation 43.6 (36.4-46.3) fL RDW Coeff of Shawn 13.1 (11.5-14.5) % Plt Count 255 (130-400) K/uL MPV 9.9 (7.4-10.4) fL Immature Gran % (Auto) 0.0 % Neut % (Auto) 43.9 % Lymph % (Auto) 37.4 % [place] % (Auto) 13.9 % Eos % (Auto) 4.1 % Baso % (Auto) 0.7 % Neut # (Auto) 2.02 (1.4-6.5) K/uL Lymph # (Auto) 1.72 (1.2-3.4) K/uL [place] # (Auto) 0.64 H (0.11-0.59) K/uL Eos # (Auto) 0.19 (0-0.5) K/uL Baso # (Auto) 0.03 (0-0.2) K/uL Immature Gran # (Auto) 0.00 (0.00-0.02) K/uL ESR (0-30) mm/hr APTT 24.7 (21.0-31.0) Seconds PTT Ratio 0.9 D-Dimer 410 (0-500) ug/L FEU Sodium 143 (136-145) mmol/L Potassium 3.6 (3.5-5.1) mmol/L Chloride 109 H (98-107) mmol/L Carbon Dioxide 28 (21-32) mmol/L Anion Gap 6.0 (3-11) BUN 22 H (7-18) mg/dl Creatinine 0.82 (0.6-1.2) mg/dl Est Cr Clr Drug Dosing 88.4 ml/min Est GFR ( Amer) 92.7 ml/min Est GFR (Non-Af Amer) 80.0 ml/min BUN/Creatinine Ratio 26.5 H (10-20) Glucose 109 H (70-99) mg/dl Calcium 8.8 (8.5-10.1) mg/dl Total Bilirubin 0.5 (0.2-1) mg/dl AST 14 L (15-37) U/L ALT 28 (12-78) U/L Alkaline Phosphatase 66 (45-117) U/L Troponin I 0.036 (0-0.045) ng/ml C-Reactive Protein (0-0.29) mg/dl Total Protein 7.8 (6.4-8.2) gm/dl Albumin 3.9 (3.4-5.0) gm/dl Globulin 3.9 (2.5-4.0) gm/dl Albumin/Globulin Ratio 1.0 (0.9-2) Lipase 243 (73-393) U/L TSH (0.300-4.500) uIu/ml COVID-19 Eval Order SARS-CoV-2 (PCR) (Negative) 10/22/20 10/22/20 10/22/20 Range/Units 05:55 05:55 05:55 WBC (4.8-10.8) K/uL RBC (4.2-5.4) M/uL Hgb (12.0-16.0) g/dL Hct (37-47) % MCV (80-100) fL MCH (25-34) pg MCHC (32-36) g/dL RDW Std Deviation (36.4-46.3) fL RDW Coeff of Shawn (11.5-14.5) % Plt Count (130-400) K/uL MPV (7.4-10.4) fL Immature Gran % (Auto) % Neut % (Auto) % Lymph % (Auto) % [place] % (Auto) % Eos % (Auto) % Baso % (Auto) % Neut # (Auto) (1.4-6.5) K/uL Lymph # (Auto) (1.2-3.4) K/uL [place] # (Auto) (0.11-0.59) K/uL Eos # (Auto) (0-0.5) K/uL Baso # (Auto) (0-0.2) K/uL Immature Gran # (Auto) (0.00-0.02) K/uL ESR 8 (0-30) mm/hr APTT (21.0-31.0) Seconds PTT Ratio D-Dimer Cancelled (0-500) ug/L FEU Sodium (136-145) mmol/L Potassium (3.5-5.1) mmol/L Chloride (98-107) mmol/L Carbon Dioxide (21-32) mmol/L Anion Gap (3-11) BUN (7-18) mg/dl Creatinine (0.6-1.2) mg/dl Est Cr Clr Drug Dosing ml/min Est GFR ( Amer) ml/min Est GFR (Non-Af Amer) ml/min BUN/Creatinine Ratio (10-20) Glucose (70-99) mg/dl Calcium (8.5-10.1) mg/dl Total Bilirubin (0.2-1) mg/dl AST (15-37) U/L ALT (12-78) U/L Alkaline Phosphatase (45-117) U/L Troponin I (0-0.045) ng/ml C-Reactive Protein < 0.29 (0-0.29) mg/dl Total Protein (6.4-8.2) gm/dl Albumin (3.4-5.0) gm/dl Globulin (2.5-4.0) gm/dl Albumin/Globulin Ratio (0.9-2) Lipase (73-393) U/L TSH (0.300-4.500) uIu/ml COVID-19 Eval Order SARS-CoV-2 (PCR) (Negative) 10/22/20 10/22/20 10/22/20 Range/Units 07:29 07:29 08:29 WBC (4.8-10.8) K/uL RBC (4.2-5.4) M/uL Hgb (12.0-16.0) g/dL Hct (37-47) % MCV (80-100) fL MCH (25-34) pg MCHC (32-36) g/dL RDW Std Deviation (36.4-46.3) fL RDW Coeff of Shawn (11.5-14.5) % Plt Count (130-400) K/uL MPV (7.4-10.4) fL Immature Gran % (Auto) % Neut % (Auto) % Lymph % (Auto) % [place] % (Auto) % Eos % (Auto) % Baso % (Auto) % Neut # (Auto) (1.4-6.5) K/uL Lymph # (Auto) (1.2-3.4) K/uL [place] # (Auto) (0.11-0.59) K/uL Eos # (Auto) (0-0.5) K/uL Baso # (Auto) (0-0.2) K/uL Immature Gran # (Auto) (0.00-0.02) K/uL ESR (0-30) mm/hr APTT (21.0-31.0) Seconds PTT Ratio D-Dimer (0-500) ug/L FEU Sodium (136-145) mmol/L Potassium (3.5-5.1) mmol/L Chloride (98-107) mmol/L Carbon Dioxide (21-32) mmol/L Anion Gap (3-11) BUN (7-18) mg/dl Creatinine (0.6-1.2) mg/dl Est Cr Clr Drug Dosing ml/min Est GFR ( Amer) ml/min Est GFR (Non-Af Amer) ml/min BUN/Creatinine Ratio (10-20) Glucose (70-99) mg/dl Calcium (8.5-10.1) mg/dl Total Bilirubin (0.2-1) mg/dl AST (15-37) U/L ALT (12-78) U/L Alkaline Phosphatase (45-117) U/L Troponin I 0.119 H* (0-0.045) ng/ml C-Reactive Protein (0-0.29) mg/dl Total Protein (6.4-8.2) gm/dl Albumin (3.4-5.0) gm/dl Globulin (2.5-4.0) gm/dl Albumin/Globulin Ratio (0.9-2) Lipase (73-393) U/L TSH 2.470 (0.300-4.500) uIu/ml COVID-19 Eval Order Covid19 at [facility] SARS-CoV-2 (PCR) (Negative) 10/22/20 Range/Units 08:29 WBC (4.8-10.8) K/uL RBC (4.2-5.4) M/uL Hgb (12.0-16.0) g/dL Hct (37-47) % MCV (80-100) fL MCH (25-34) pg MCHC (32-36) g/dL RDW Std Deviation (36.4-46.3) fL RDW Coeff of Shawn (11.5-14.5) % Plt Count (130-400) K/uL MPV (7.4-10.4) fL Immature Gran % (Auto) % Neut % (Auto) % Lymph % (Auto) % [place] % (Auto) % Eos % (Auto) % Baso % (Auto) % Neut # (Auto) (1.4-6.5) K/uL Lymph # (Auto) (1.2-3.4) K/uL [place] # (Auto) (0.11-0.59) K/uL Eos # (Auto) (0-0.5) K/uL Baso # (Auto) (0-0.2) K/uL Immature Gran # (Auto) (0.00-0.02) K/uL ESR (0-30) mm/hr APTT (21.0-31.0) Seconds PTT Ratio D-Dimer (0-500) ug/L FEU Sodium (136-145) mmol/L Potassium (3.5-5.1) mmol/L Chloride (98-107) mmol/L Carbon Dioxide (21-32) mmol/L Anion Gap (3-11) BUN (7-18) mg/dl Creatinine (0.6-1.2) mg/dl Est Cr Clr Drug Dosing ml/min Est GFR ( Amer) ml/min Est GFR (Non-Af Amer) ml/min BUN/Creatinine Ratio (10-20) Glucose (70-99) mg/dl Calcium (8.5-10.1) mg/dl Total Bilirubin (0.2-1) mg/dl AST (15-37) U/L ALT (12-78) U/L Alkaline Phosphatase (45-117) U/L Troponin I (0-0.045) ng/ml C-Reactive Protein (0-0.29) mg/dl Total Protein (6.4-8.2) gm/dl Albumin (3.4-5.0) gm/dl Globulin (2.5-4.0) gm/dl Albumin/Globulin Ratio (0.9-2) Lipase (73-393) U/L TSH (0.300-4.500) uIu/ml COVID-19 Eval Order SARS-CoV-2 (PCR) NEGATIVE (Negative) Administered Medications Discontinued Medications Al Hydrox/Mg Hydrox/Simethicone (Gi Cocktail Ed Use) 1 dose PO ONE ONE Stop: 10/22/20 06:53 Last Admin: 10/22/20 06:58 Dose: 1 dose Documented by: [id number] Aspirin (Aspirin Chew 324 Mg) 324 mg PO NOW STA Stop: 10/22/20 08:13 Last Admin: 10/22/20 08:24 Dose: 324 mg Documented by: [id number] Aspirin (Aspirin 81 Mg Ectab) [facility] [place] Stop: 11/22/20 08:59 Last Admin: 10/23/20 07:47 Dose: 81 mg Documented by: [id number] Atorvastatin Calcium (Atorvastatin 40 Mg Tab) 40 mg PO QPM [facility] Stop: 11/21/20 20:59 Last Admin: 10/22/20 20:16 Dose: 40 mg Documented by: [id number] Bupropion HCl (Bupropion Sr 100 Mg Tabcr) 200 mg PO BID [facility] Stop: 11/21/20 13:44 Last Admin: 10/23/20 07:47 Dose: 200 mg Documented by: [id number] Admin: 10/22/20 20:05 Dose: Not Given Documented by: [id number] Admin: 10/22/20 16:01 Dose: 200 mg Documented by: [id number] Clopidogrel Bisulfate (Clopidogrel Bisulfate 75 Mg Tab) 75 mg PO QAM [facility] Stop: 11/21/20 19:44 Last Admin: 10/23/20 07:46 Dose: 75 mg Documented by: [id number] Admin: 10/22/20 20:16 Dose: 75 mg Documented by: [id number] Fentanyl Citrate (Fentanyl Citrate 100 Mcg/2 Ml Vial) Confirm Administered Dose 100 mcg .ROUTE .STK-MED ONE Stop: 10/22/20 11:58 Last Admin: 10/22/20 13:38 Dose: Not Given Documented by: [id number] Heparin Sodium (Porcine) (Heparin Sod (Porcine) 1000 Unit/Ml) 1 units IV NOW ONE Stop: 10/22/20 08:29 Last Admin: 10/22/20 08:25 Dose: 5,000 units Documented by: [id number] Cosigned by: [id number] Heparin Sodium (Porcine) (Heparin (Porcine) 1000 Unit/Ml 10 Ml (Grievance Manager Use Only)) Confirm Administered Dose 10,000 units .ROUTE .STK-MED ONE Stop: 10/22/20 11:57 Last Admin: 10/22/20 13:38 Dose: Not Given Documented by: [id number] Heparin Sodium/Dextrose (Heparin Iv Adult Wt-Based Standard With Bolus Protocol) 1 ea IV NOW STA; Protocol Stop: 10/22/20 08:14 Last Admin: 10/22/20 08:26 Dose: 1 ea Documented by: [id number] Heparin Sodium/Sodium Chloride (Heparin In Nss Infusion 1000 Unit/500 Ml (2 U/Ml) Bag) Confirm Administered Dose 3,000 units IV .STK-MED ONE Stop: 10/22/20 11:58 Last Admin: 10/22/20 13:38 Dose: Not Given Documented by: [id number] Heparin Sodium/Dextrose (Heparin Sodium/Dextrose) 25,000 units in 500 mls @ 28 mls/hr IV .[id number] [facility]; Protocol Stop: 11/21/20 08:27 Last Titration: 10/22/20 19:06 Dose: 0 units/hr, 0 mls/hr Documented by: [id number] Cosigned by: [id number] Admin: 10/22/20 08:24 Dose: 1,400 units/hr, 28 mls/hr Documented by: [id number] Cosigned by: [id number] Sodium Chloride (Nss 1000ml) 1,000 mls @ 100 mls/hr IV .Q10H [facility] Stop: 10/22/20 13:21 Last Infusion: 10/22/20 19:07 Dose: 0 mls/hr Documented by: [id number] Admin: 10/22/20 13:40 Dose: 100 mls/hr Documented by: [id number] Ketorolac Tromethamine (Ketorolac 30 Mg/Ml Vial) 30 mg IV NOW ONE Stop: 10/22/20 07:11 Last Admin: 10/22/20 07:15 Dose: 30 mg Documented by: [id number] Levothyroxine Sodium (Levothyroxine Sodium 100 Mcg Tablet) 100 mcg PO DAILYBB [facility] Stop: 11/21/20 13:44 Last Admin: 10/23/20 06:11 Dose: 100 mcg Documented by: [id number] Admin: 10/22/20 16:02 Dose: 100 mcg Documented by: [id number] Lisinopril (Lisinopril 2.5 Mg Tab) 2.5 mg PO QAM [facility] Stop: 11/21/20 16:59 Last Admin: 10/23/20 07:47 Dose: 2.5 mg Documented by: [id number] Admin: 10/22/20 17:56 Dose: 2.5 mg Documented by: [id number] Midazolam HCl (Midazolam Hcl 1 Mg/Ml 2ml Vial) Confirm Administered Dose 2 mg .ROUTE .STK-MED ONE Stop: 10/22/20 11:58 Last Admin: 10/22/20 13:38 Dose: Not Given Documented by: [id number] Multivitamins (Multivitamin Tab) 1 tab PO DAILY [facility] Stop: 11/21/20 13:44 Last Admin: 10/23/20 07:47 Dose: 1 tab Documented by: [id number] Admin: 10/22/20 16:02 Dose: 1 tab Documented by: [id number] Nicardipine HCl (Nicardipine Hcl Inj 2.5 Mg/Ml 10 Ml Amp) Confirm Administered Dose 25 mg .ROUTE .STK-MED ONE Stop: 10/22/20 11:57 Last Admin: 10/22/20 13:36 Dose: Not Given Documented by: [id number] Nitroglycerin/Dextrose (Nitroglycerin/D5w 100mcg/Ml 20ml Syr) Confirm Administered Dose 2,000 mcg .ROUTE .STK-MED ONE Stop: 10/22/20 11:58 Last Admin: 10/22/20 13:39 Dose: Not Given Documented by: [id number] Imaging Data Radiologist's Impression: Chest X-Ray 10/22/20 05:55 XR chest 1V portable HISTORY: 54 years-old Female Chest Pain acute atypical chest pain COMPARISON: None TECHNIQUE: Portable AP view of the chest FINDINGS: Cardiomediastinal and hilar silhouettes are within normal limits. No pneumothorax, pleural effusion, airspace consolidation or overt pulmonary edema. Bones of the chest appear grossly intact. IMPRESSION: No acute process. ACT 112: Negative or not required by law. The above report was generated using voice recognition software. It may contain grammatical, syntax or spelling errors. Electronically signed by: Seferino Crowley M.D. 10/22/2020 7:10 AM Discharge Plan Visit Data Chief Complaint: Chest Pain Stated Complaint: CHEST PAIN ED Provider: Jacqueline Horn Discharge Problem: Acute non-ST elevation myocardial infarction (NSTEMI) Patient Disposition: Admitted As Inpatient Discharge Instructions Interventions: ED Discharge Assessment Last Done: 10/22/20 11:24
[2020-10-22 06:19] LABS: Partial Thromboplastin Ratio 0.9; Partial Thromboplastin Time 24.7 Seconds (21.0-31.0)
[2020-10-22 06:24] LABS: Albumin Level 3.9 gm/dl (3.4-5.0); BUN Creatinine Ratio 26.5 (10-20); Calcium 8.8 mg/dl (8.5-10.1); Creatinine Clr Calc Pharmacy 88.4 ml/min; Est GFR (African American) 92.7 ml/min; Potassium 3.6 mmol/L (3.5-5.1)
[2020-10-22 06:29] LABS: Bilirubin,Total 0.5 mg/dl (0.2-1); Globulin 3.9 gm/dl (2.5-4.0); Total Protein 7.8 gm/dl (6.4-8.2); Troponin I 0.036 ng/ml (0-0.045)
[2020-10-22] MEDS ORDERED: GI COCKTAIL ED USE PO ONE (06:52)
[2020-10-22 07:02] LABS: D Dimer 410 ug/L FEU (0-500)
[2020-10-22] MEDS ORDERED: KETOROLAC 30 MG/ML VIAL IV ONE (07:10)
--- NOTE | 2020-10-22 07:11 | XRay Report ---
XR chest 1V portable HISTORY: 54 years-old Female Chest Pain acute atypical chest pain COMPARISON: None TECHNIQUE: Portable AP view of the chest FINDINGS: Cardiomediastinal and hilar silhouettes are within normal limits. No pneumothorax, pleural effusion, airspace consolidation or overt pulmonary edema. Bones of the chest appear grossly intact. IMPRESSION: No acute process. ACT 112: Negative or not required by law. The above report was generated using voice recognition software. It may contain grammatical, syntax o r spelling errors. Electronically signed by: Seferino Crowley M.D. 10/22/2020 7:10 AM
[2020-10-22] MEDS ORDERED: ASPIRIN CHEW 324 MG PO STA (08:12)
[2020-10-22] MEDS ORDERED: Heparin IV Adult Wt-Based Standard WITH Bolus Protocol IV STA (08:13)
[2020-10-22] MEDS ORDERED: HEPARIN SOD (PORCINE) 1000 UNIT/ML IV ONE (08:28)
[2020-10-22] MEDS ORDERED: HEPARIN SODIUM/DEXTROSE 25,000 UNITS/500 ML BAG IV SCH (08:28)
--- NOTE | 2020-10-22 09:01 | History & Physical Report ---
Date of Service October 22, 2020 Assessment & Plan (1) Acute non-ST elevation myocardial infarction (NSTEMI): - Admit to tele - Trend cardiac biomarkers, initial set was 0.036, second is positive at 0.119, check third set at 1330. - EKG reviewed as above showing sinus bradycardia - Obtain 2 D echo - Consult cardiology, Dr. Johnson, for possible cardiac cath and medication recommendations. Pt has not eaten anything today, keep NPO. - Statin, BB as tolerated with sinus bacilio, and baby aspirin - Continue on Heparin gtt started in the ER. Had full dose baby aspirin. - PT/OT consulted (2) Anemia: -History of such, hemoglobin is stable at 13.7, hematocrit 41.1 (3) Anxiety: - Continue Wellbutrin - May need small dose of ativan for anxiety here in the hospital. (4) Hypothyroidism: -Continue levothyroxine 100 mcg daily -Check TSH and free T4 DVT PPx: - teds, scds CODE: Full code Dispo: From home, likely to remain in the hospital x 1-2 days History of Present Illness Primary Care Provider: NO PCP This is a 54-year-old female with PMHx of hypothyroidism, anemia, postmenopausal bleeding who presents with acute onset of substernal chest pain which did not radiate, which woke her from sleep at 0230 this morning. She took some Tylenol which did not improve her pain. She was unable to go back to sleep. She then presented to the ER because when she was getting ready for work noticed the pain was still there.. Patient reports doingn home improvements yesterday and hanging drywall, and thought that it could possibly be musculoskeletal. She and her ate mongolian last evening and thought this could also be heartburn, but has never had heartburn before. 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 Denies tobacco use. Pt reports mother had a pacemaker placed for something, but as a complication to having the procedure from a puncture to the pericardial sac and filling with blood. She is tearful intermittently when talking about this, and is anxious about never having had any other medical issues before in her life. Here in the ER her first troponin was negative, on repeat after 2 hours troponin was positive at 0.1. There are no EKG changes. He has been started on heparin drip and given a full dose aspirin in the ER. Allergies Allergy/AdvReac Type Severity Reaction Status Date / Time No Known Allergies Allergy Verified 10/22/20 07:33 Home Medications Medication Instructions Recorded Confirmed Type multivitamin 1 tab PO DAILY #30 tab 11/05/18 10/24/20 Rx bupropion HCl 200 mg tablet,12 hr 200 mg PO BID #180 ea 02/29/20 10/24/20 Rx sustained-release levothyroxine 100 mcg tablet 100 mcg PO DAILY #90 tab 02/29/20 10/24/20 Rx acetaminophen [Tylenol] 325 mg PO QID PRN 10/22/20 10/24/20 History aspirin 81 mg PO QAM #30 tab 10/23/20 10/24/20 Rx atorvastatin 40 mg PO QPM #30 tab 10/23/20 10/24/20 Rx clopidogrel 75 mg PO QAM #30 tab 10/23/20 10/24/20 Rx lisinopril 2.5 mg PO QAM #30 tab 10/23/20 10/24/20 Rx nitroglycerin [Nitrostat] 0.4 mg SUBLINGUAL Q5M PRN #30 tab 10/23/20 10/24/20 Rx Past Med/Surg History Medical History Acute non-ST elevation myocardial infarction (NSTEMI) Chronic venous insufficiency Endometrial thickening on ultrasound Generalized osteoarthritis Post-menopausal bleeding Surgical History H/O dilation and curettage Family History (Updated 10/24/20 @ 10:38 by Tracey Durbin RN) Sister Diabetes Father Lung cancer Uncle Myocardial infarction Other Cancer Depression Denies family history of Ovarian cancer Prostate cancer Breast cancer Colorectal cancer Social History Smoking Status: Never smoker Second Hand Exposure: No; Do You Dip or Chew Tobacco: No; Tobacco Cessation Education Requested by Patient: No Hx Alcohol Use: No Hx Substance Use: No Preferred Language: Japanese Communication Ability: Effective Visual Impairment: No Limitations Hearing Ability: Normal 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 Feels Safe at Home: Yes Childhood Exposure to Second-Hand Smoke: Yes Dental Care, Regularly: Yes Physical Activity Frequency: Daily Seatbelt Use: always Sunscreen Use: No Assistive Devices: None Review of Systems Review of Systems: Constitutional: No fever, sweats or chills Eyes: No diplopia, no worsening or blurred vision ENT: normal hearing, no trouble swallowing Respiratory: No cough, sputum, dyspnea at rest or on exertion Cardiovascular: + chest pain as per HPI, currently rated 1/10, no tightness or palpitations Abdomen: No pain, nausea, vomiting, diarrhea or constipation Musculoskeletal: No joint pain, calf pain, swelling Neurologic: No weakness, numbness/tingling, or balance problems Psychiatric: + anxiety and depression on medication Skin: No rash or itch Physical Exam Physical Exam: General: awake, alert, no apparent distress, + anxious Head: Normocephalic, atraumatic ENT: PERRL, EOMI, no pharyngeal exudate, mucous membranes moist Chest: Clear to auscultation, on room air, no adventitious breath sounds Cardiac: No pain reproducible of chest, Regular rate and rhythm, no murmur, no JVD, normal peripheral pulses, good capillary refill Abdominal: NABS x 4 quadrants, soft, nondistended, nontender to palpation, no rebound or guarding Extremities: Normal inspection, no peripheral edema or erythema, calfs nontender to palpation Psych: Normal mood and affect Neuro: AAO x 3, strength intact bilaterally and rated 5/5, no motor deficits, speech is clear, no peripheral sensory deficits Results & Data Results & Data ([facility]) Vital Signs (Past 12 Hours) Vital Signs Temp Pulse Resp BP Pulse Ox 10/22/20 08:30 58 L 13 125/75 98 10/22/20 06:58 73 15 145/79 H 97 10/22/20 06:12 57 L 18 135/72 96 10/22/20 06:00 58 L 20 135/72 99 10/22/20 05:57 56 L 19 98 10/22/20 05:55 98 10/22/20 05:41 36.2 C L 67 20 151/75 H 97 Diagnostic Findings Chest X-Ray 10/22/20 05:55 XR chest 1V portable HISTORY: 54 years-old Female Chest Pain acute atypical chest pain COMPARISON: None TECHNIQUE: Portable AP view of the chest FINDINGS: Cardiomediastinal and hilar silhouettes are within normal limits. No pneumothorax, pleural effusion, airspace consolidation or overt pulmonary edema. Bones of the chest appear grossly intact. IMPRESSION: No acute process. ACT 112: Negative or not required by law. The above report was generated using voice recognition software. It may contain grammatical, syntax or spelling errors. Electronically signed by: Seferino Crowley M.D. 10/22/2020 7:10 AM ECG Additional Comments: 22-OCT-2020 08:32:57 [facility]-EDSTAT ROUTINE RETRIEVAL Sinus bradycardia Incomplete right bundle branch block Borderline ECG When compared with ECG of 22-OCT-2020 05:47, (unconfirmed) No significant change was found 25mm/s 10mm/mV 150Hz 9.0.9 12SL 241 JAMES: 15 Referred by: REFERRED SELF Unconfirmed Vent. rate 54 BPM GA interval 188 ms QRS duration 116 ms QT/QTc 462/438 ms Code Status & VTE Plan Code Status Full code - discussed with the patient at bedside Supervising Physician Co-Signing Physician Notes Pt was seen and examined. Agreed with Tiarra exam, assessment and plan. 54-year-old female with PMHx of hypothyroidism, anemia, postmenopausal bleeding who presents to the ER with non radiated chest pain. Pt said that this morning around 2AM she woke up with chest pain. She said that she took tylenol with no relief. 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 Pt said that she is very active and exercise regularly. In the ER initial troponin was negative, then bumped to 0.11-> 2.5. EKG showed no ischemic changes on admission. CXR showed no acute changes. Pt was starting on IV heparin drip in the ER. Cardiology was consulted. Case discussed with Cardiology that plan to take to cardiac cath today. Will keep NPO for now. Aspirin 81mg added. Will follow troponin. Will get a resting echo today. Will monitor closely in telemetry. MD phuong Yancey
--- NOTE | 2020-10-22 10:35 | Cardiology Consultation ---
Date of Consultation October 22, 2020 Assessment & Plan (1) Acute non-ST elevation myocardial infarction (NSTEMI): Patient is a 54-year-old female with concerning presentation with symptoms of rest chest discomfort waking her from sleep last evening. No acute ST changes on EKG however troponins have evolved on second testing. Plan: Patient will undergo echocardiogram this morning and tentatively cardiac catheterization early this afternoon. Patient to be kept n.p.o. She is appropriately received aspirin and IV heparin No history of contrast allergy. Blood pressures equal in both arms with good access pulses Procedure and risks were explained in detail with the patient with informed consent to follow History of Present Illness Reason for Consultation: Chest pain at rest Requesting Physician: Dr Horn History of Present Illness Patient is a 54-year-old female without prior history of cardiac disease or significant underlying cardiovascular risk factors other than mild elevation of triglycerides presents this admission having awakened from sleep with substernal chest pressure approximately 2:30 AM symptoms persisted throughout the night resulting in ER presentation earlier this morning. Initial EKGs and cardiac enzymes were unremarkable second troponin however was elevated at 0.1. Patient currently comfortable. No associated symptoms of diaphoresis or shortness of breath. No exertional relationship. No pleuritic discomfort. No sense of tachypalpitations. No prior history of cardiac disease rheumatic fever scarlet fever heart failure. No history of TIA or stroke. No history of diabetes or hypertension. Patient on minimal medications only for hypothyroidism. Family history is notable for mother with pacemaker though management notable for pericardial tamponade surrounding procedure with patient succumbing to procedural complication. No fevers chills recent infections. Patient physically active without specific limitations usually. She does note one episode approximately 2 months ago with similar awakening from sleep with chest pressure pain Allergies Allergy/AdvReac Type Severity Reaction Status Date / Time No Known Allergies Allergy Verified 10/22/20 07:33 Home Medications Medication Instructions Recorded Confirmed Type multivitamin 1 tab PO DAILY #30 tab 11/05/18 10/22/20 Rx bupropion HCl 200 mg tablet,12 hr 200 mg PO BID #180 ea 02/29/20 10/22/20 Rx sustained-release levothyroxine 100 mcg tablet 100 mcg PO DAILY #90 tab 02/29/20 10/22/20 Rx acetaminophen [Tylenol] 325 mg PO QID PRN 10/22/20 10/22/20 History Patient History Medical History Anemia Anxiety Chronic venous insufficiency Endometrial thickening on ultrasound Generalized osteoarthritis Hypothyroidism Post-menopausal bleeding Surgical History H/O dilation and curettage Family History Sister Diabetes Father Lung cancer Other Cancer Depression Denies family history of Ovarian cancer Prostate cancer Myocardial infarction Breast cancer Colorectal cancer Social History Smoking Status: Never smoker Second Hand Exposure: Yes; Hx Alcohol Use: No Hx Substance Use: No Preferred Language: Irish Visual Impairment: No Limitations Hearing Ability: Normal marital status: Current Living Situation: Spouse current occupational status: employed Feels Safe at Home: Yes Childhood Exposure to Second-Hand Smoke: Yes Dental Care, Regularly: Yes Physical Activity Frequency: Daily Seatbelt Use: always Sunscreen Use: No Review of Systems Review of Systems: All systems reviewed & are unremarkable except as noted in HPI & below Physical Exam Constitutional: WD/WN, vitals as above Eyes: PERRL, conjunctivae normal, anicteric sclerae ENMT: external ear and nose normal, oropharynx normal Neck: trachea midline, no thyromegaly Respiratory: normal respiratory effort, lungs clear to auscultation Cardiovascular: Rate/Rhythm: regular rate and regular rhythm Heart Sounds: normal S1 and normal S2; no gallop and no murmur Palpation: normal PMI Vessels: normal carotid upstroke and radial pulses present; no JVD and no carotid bruit Extremities: no edema Gastrointestinal (Abdomen): normal bowel sounds, soft, nontender, no hepatosplenomegaly Musculoskeletal: no cyanosis or clubbing, extremities motor strength 5/5 Skin: no rashes, warm and dry Neurologic: PERRL, EOMI, accommodation nl, no face palsy, no dysarthria Psychiatric: A+Ox3, euthymic affect Results & Data ([facility]) Vital Signs (Past 12 Hours) Vital Signs Temp Pulse Resp BP Pulse Ox 10/22/20 09:38 66 20 135/68 99 10/22/20 09:30 57 L 20 134/69 97 10/22/20 09:00 56 L 16 141/54 H 98 10/22/20 08:31 54 L 20 125/75 98 10/22/20 08:30 58 L 13 125/75 98 10/22/20 06:58 73 15 145/79 H 97 10/22/20 06:12 57 L 18 135/72 96 10/22/20 06:00 58 L 20 135/72 99 10/22/20 05:57 56 L 19 98 10/22/20 05:55 98 10/22/20 05:41 36.2 C L 67 20 151/75 H 97 Laboratory Results Laboratory Results - last 24 hr 10/22/20 10/22/20 10/22/20 05:55 05:55 05:55 WBC 4.60 L RBC 4.52 Hgb 13.7 Hct 41.1 MCV 90.9 MCH 30.3 MCHC 33.3 RDW Std Deviation 43.6 RDW Coeff of Shawn 13.1 Plt Count 255 MPV 9.9 Immature Gran % (Auto) 0.0 Neut % (Auto) 43.9 Lymph % (Auto) 37.4 Barber % (Auto) 13.9 Eos % (Auto) 4.1 Baso % (Auto) 0.7 Neut # (Auto) 2.02 Lymph # (Auto) 1.72 Barber # (Auto) 0.64 H Eos # (Auto) 0.19 Baso # (Auto) 0.03 Immature Gran # (Auto) 0.00 ESR APTT 24.7 PTT Ratio 0.9 D-Dimer 410 Sodium 143 Potassium 3.6 Chloride 109 H Carbon Dioxide 28 Anion Gap 6.0 BUN 22 H Creatinine 0.82 Est Cr Clr Drug Dosing 88.4 Est GFR ( Amer) 92.7 Est GFR (Non-Af Amer) 80.0 BUN/Creatinine Ratio 26.5 H Glucose 109 H Calcium 8.8 Total Bilirubin 0.5 AST 14 L ALT 28 Alkaline Phosphatase 66 Troponin I 0.036 C-Reactive Protein Total Protein 7.8 Albumin 3.9 Globulin 3.9 Albumin/Globulin Ratio 1.0 Lipase 243 TSH COVID-19 Eval Order SARS-CoV-2 (PCR) 10/22/20 10/22/20 10/22/20 05:55 05:55 05:55 WBC RBC Hgb Hct MCV MCH MCHC RDW Std Deviation RDW Coeff of Shawn Plt Count MPV Immature Gran % (Auto) Neut % (Auto) Lymph % (Auto) Barber % (Auto) Eos % (Auto) Baso % (Auto) Neut # (Auto) Lymph # (Auto) Barber # (Auto) Eos # (Auto) Baso # (Auto) Immature Gran # (Auto) ESR 8 APTT PTT Ratio D-Dimer Cancelled Sodium Potassium Chloride Carbon Dioxide Anion Gap BUN Creatinine Est Cr Clr Drug Dosing Est GFR ( Amer) Est GFR (Non-Af Amer) BUN/Creatinine Ratio Glucose Calcium Total Bilirubin AST ALT Alkaline Phosphatase Troponin I C-Reactive Protein < 0.29 Total Protein Albumin Globulin Albumin/Globulin Ratio Lipase TSH COVID-19 Eval Order SARS-CoV-2 (PCR) 10/22/20 10/22/20 10/22/20 07:29 07:29 08:29 WBC RBC Hgb Hct MCV MCH MCHC RDW Std Deviation RDW Coeff of Shawn Plt Count MPV Immature Gran % (Auto) Neut % (Auto) Lymph % (Auto) Barber % (Auto) Eos % (Auto) Baso % (Auto) Neut # (Auto) Lymph # (Auto) Barber # (Auto) Eos # (Auto) Baso # (Auto) Immature Gran # (Auto) ESR APTT PTT Ratio D-Dimer Sodium Potassium Chloride Carbon Dioxide Anion Gap BUN Creatinine Est Cr Clr Drug Dosing Est GFR ( Amer) Est GFR (Non-Af Amer) BUN/Creatinine Ratio Glucose Calcium Total Bilirubin AST ALT Alkaline Phosphatase Troponin I 0.119 H* C-Reactive Protein Total Protein Albumin Globulin Albumin/Globulin Ratio Lipase TSH 2.470 COVID-19 Eval Order Covid19 at [facility] SARS-CoV-2 (PCR) 10/22/20 08:29 WBC RBC Hgb Hct MCV MCH MCHC RDW Std Deviation RDW Coeff of Shawn Plt Count MPV Immature Gran % (Auto) Neut % (Auto) Lymph % (Auto) Barber % (Auto) Eos % (Auto) Baso % (Auto) Neut # (Auto) Lymph # (Auto) Barber # (Auto) Eos # (Auto) Baso # (Auto) Immature Gran # (Auto) ESR APTT PTT Ratio D-Dimer Sodium Potassium Chloride Carbon Dioxide Anion Gap BUN Creatinine Est Cr Clr Drug Dosing Est GFR ( Amer) Est GFR (Non-Af Amer) BUN/Creatinine Ratio Glucose Calcium Total Bilirubin AST ALT Alkaline Phosphatase Troponin I C-Reactive Protein Total Protein Albumin Globulin Albumin/Globulin Ratio Lipase TSH COVID-19 Eval Order SARS-CoV-2 (PCR) NEGATIVE Medications Administered Current Medications Heparin Sodium/Dextrose (Heparin Sodium/Dextrose) 25,000 units in 500 mls @ 28 mls/hr IV .[id number] [facility]; Protocol Stop: 11/21/20 08:27 Last Admin: 10/22/20 08:24 Dose: 1,400 units/hr, 28 mls/hr Documented by: ECG Additional Comments: Serial EKGs were performed demonstrating sinus rhythm with incomplete right bundle branch block nonstick ST flattening inferior leads no acute ST elevation or depression.
[2020-10-22] MEDS ORDERED: HEPARIN (PORCINE) 1000 UNIT/ML 10 ML (CATH LAB USE ONLY) ONE (11:56)
[2020-10-22] MEDS ORDERED: niCARdipine HCL INJ 2.5 MG/ML 10 ML AMP ONE (11:56)
[2020-10-22] MEDS ORDERED: MIDAZOLAM HCL 1 MG/ML 2ML VIAL ONE (11:57)
[2020-10-22] MEDS ORDERED: fentaNYL citrate 100 MCG/2 ML VIAL ONE (11:57)
[2020-10-22] MEDS ORDERED: NITROGLYCERIN/D5W 100MCG/ML 20ML SYR ONE (11:57)
--- NOTE | 2020-10-22 12:10 | Pre Anesthesia Assessment ---
Date of Service October 22, 2020 Pre Sedation Assessment Vital Signs Temp Pulse Pulse Resp BP BP Pulse Ox 10/22/20 11:11 54 L 20 128/67 96 10/22/20 11:00 56 L 17 119/71 97 10/22/20 10:40 59 L 22 130/62 97 10/22/20 10:30 57 L 20 127/69 97 10/22/20 09:38 66 20 135/68 99 10/22/20 09:30 57 L 20 134/69 97 10/22/20 09:00 56 L 16 141/54 H 98 10/22/20 08:31 54 L 20 125/75 98 10/22/20 08:30 58 L 13 125/75 98 10/22/20 06:58 73 15 145/79 H 97 10/22/20 06:12 57 L 18 135/72 96 10/22/20 06:00 58 L 20 135/72 99 10/22/20 05:57 56 L 19 98 10/22/20 05:55 98 10/22/20 05:41 36.2 C L 67 20 151/75 H 97 Cardiovascular RRR, no murmur, no edema Respiratory normal respiratory effort, lungs clear to auscultation Pre-Sedation Airway Assessment Smoking Status: Never smoker Hx Sleep Apnea: No Short, Thick Neck: No Thyromental Distance: > or= 3.5 Finger Breadths Oral Cavity: + WNL Mallampati Class: I ASA: ASA2 NPO Status Date of Last Intake of Fluids: 10/22/20 Time of Last Intake of Fluids: 08:00 Date of Last Intake of Solid Food: 10/21/20 Time of Last Intake of Solid Foods: 18:00 Procedure Planning Contraindications for Sedation: none Current Medications Reviewed: Yes Notes The planned sedation has been discussed with the patient. Informed Consent was obtained. I have identified the patient, determined the appropriateness of sedation and have assessed the patient immediately prior to the procedure. All medicine(s) and interventions are by my order.
--- NOTE | 2020-10-22 12:10 | Pre Anesthesia Assessment ---
Date of Service October 22, 2020 Pre Sedation Assessment Vital Signs Temp Pulse Pulse Resp BP BP Pulse Ox 10/22/20 11:11 54 L 20 128/67 96 10/22/20 11:00 56 L 17 119/71 97 10/22/20 10:40 59 L 22 130/62 97 10/22/20 10:30 57 L 20 127/69 97 10/22/20 09:38 66 20 135/68 99 10/22/20 09:30 57 L 20 134/69 97 10/22/20 09:00 56 L 16 141/54 H 98 10/22/20 08:31 54 L 20 125/75 98 10/22/20 08:30 58 L 13 125/75 98 10/22/20 06:58 73 15 145/79 H 97 10/22/20 06:12 57 L 18 135/72 96 10/22/20 06:00 58 L 20 135/72 99 10/22/20 05:57 56 L 19 98 10/22/20 05:55 98 10/22/20 05:41 36.2 C L 67 20 151/75 H 97 Pre-Sedation Airway Assessment Smoking Status: Never smoker Hx Sleep Apnea: No Short, Thick Neck: No Thyromental Distance: > or= 3.5 Finger Breadths Oral Cavity: + WNL Mallampati Class: I ASA: ASA2 NPO Status Date of Last Intake of Fluids: 10/22/20 Time of Last Intake of Fluids: 08:00 Date of Last Intake of Solid Food: 10/21/20 Time of Last Intake of Solid Foods: 18:00 Notes The planned sedation has been discussed with the patient. Informed Consent was obtained. I have identified the patient, determined the appropriateness of sedation and have assessed the patient immediately prior to the procedure. All medicine(s) and interventions are by my order.
--- NOTE | 2020-10-22 12:41 | Cardiac Catheterization ---
Cardiac Cath Procedure Full Procedure Date October 22, 2020 Pre-Procedure Diagnosis Pre-Procedure Diagnosis: Non STEMI AUC Score AUC Score: 8 Post-Procedure Diagnosis Post-Procedure Diagnosis: Moderate CAD Procedure(s) Performed Procedure(s) Performed: Coronary Angiography, Left Heart Cath and LV Angiography Billing Coordinator Armando Johnson MD Estimated Blood Loss Estimated Blood Loss: <15cc Medication(s) Medication(s): Fentanyl (12.5 mcg IV), Heparin (2000 units IV), Lidocaine 1% (Local infiltration access site), Nicardipine (250 mcg intra-arterial after sheath insertion) and Versed Medication(s): 1 mg IV Summary of Findings Final impression: Right dominant coronary anatomy Moderate coronary artery disease with a smooth 40% proximal left anterior descending narrowing, 75% narrowing distal circumflex marginal branch Focal hypokinesis LV apex with preserved LV systolic function, normal left end- diastolic pressure Coronary angiography: Left main: Normal caliber and free of disease and calcification Left anterior descending: Type III in distribution, it gives rise to 2 tiny diagonals and a moderate-sized third diagonal in its midportion before coursing to the apex. Within the left anterior descending there is a 40% narrowing in its very proximal segment, smooth Left circumflex: Nondominant giving rise to a small first marginal and a large long second marginal branch and a single posterior lateral branch. Within the distal portion of the second marginal branch there is an eccentric 75% stenosis Right coronary artery: Moderately large, dominant distribution giving rise to a large sinoatrial branch 2 small RV branches and at the AV groove a long posterior descending artery and along the AV groove a bifurcating terminal posterior ventricular branch there is no disease in the right coronary artery LV angiography: Overall systolic function is normal there is a discrete area of hypokinesis at the very apex with all other wall segments jaida normally EF 55% LVEDP 14-16 Hemodynamics Rest Ao:: 167/71/107 Final Ao: 157/83/112 LV: 167/2/17 Recommendations Recommendations: Medical Therapy and/or Counseling Specimens Specimens: None Radiation Exposure (mGy) 275 Contrast (mls) 90 Fluids (cc crystalloids) Fluids (cc crystalloids): 50 Procedural Complication(s) None Disposition PCU I attest to the content of the Intraoperative Record and any orders documented therein. Any exceptions are noted below. 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 Cardiac Status Clinical evaluation leading to the procedure 54-year-old female who presented with rest chest pain and elevated troponin CAD Presenation: Non STEMI Anginal Classification: CCS IV Heart Failure: No Cardiogenic Shock within 24 Hours: No Cardiac Arrest within 24 Hours: No Imaging Studies Past 6 Months: Yes Stress Studies Past 6 Months: No Standard Exercise Test: No Stress Echocardiogram: No Stress Testing w/SPECT MPI: No Cardiac CTA: No STEMI OR Non-STEMI Symptom Onset Date: 10/22/20 Symptom Onset Time: 02:30 Thrombolytics: No Coronary Anatomy Dominant: Right Left Main (% Stenosis): Normal LAD (% Stenosis): Proximal (40) D1 (% Stenosis): Normal D2 (% Stenosis): Normal D3 (% Stenosis): Normal OM2 (% Stenosis): Distal (75% thin caliber vessel) RCA (% Stenosis): Normal R PDA (% Stenosis): Normal R PL1 (% Stenosis): Normal Left Ventricular Angiography EF (%): 55 Wall Motion: Apical (Small discrete focal apical hypokinesis) Mitral Regurgitation: None Diagnostic Physicians Name: Armando Johnson MD Status: Urgent Closure Device Percutaneous Entry Location: Radial Closure Device: Radial Band Recommendations: Medical Therapy and/or Counseling
[2020-10-22] MEDS ORDERED: NITROGLYCERIN SL 0.4 MG/TAB TAB SL PRN (13:11)
--- NOTE | 2020-10-22 13:11 | Cardiac Catheterization ---
Cardiac Cath Procedure Brief Procedure Date October 22, 2020 Pre-Procedure Diagnosis Pre-Procedure Diagnosis: Non STEMI AUC Score AUC Score: 8 Post-Procedure Diagnosis Post-Procedure Diagnosis: Moderate CAD Procedure(s) Performed Procedure(s) Performed: Coronary Angiography, Left Heart Cath and LV Angiography [employer] Armando Johnson MD Facility Assistant(s) Penelope Estimated Blood Loss Estimated Blood Loss: <15cc Medication(s) Medication(s): Fentanyl (12.5 mcg IV), Heparin (2000 units IV), Lidocaine 1% (Local infiltration access site), Nicardipine (250 mcg intra-arterial after arterial sheath insertion) and Versed (1 mg IV) Preliminary Findings Right dominant coronary anatomy Moderate coronary artery disease with a smooth 40% proximal left anterior descending narrowing, 75% narrowing distal circumflex marginal branch Focal hypokinesis LV apex with preserved LV systolic function, normal left end- diastolic pressure Recommendations Recommendations: Medical Therapy and/or Counseling Specimens Specimens: None Fluids (cc crystalloids) Fluids (cc crystalloids): 50 Anesthesia Start time: 1213, stop time: 1228 Procedural Complication(s) None Disposition PCU
[2020-10-22] MEDS ORDERED: SODIUM CHLORIDE 0.9% 1000ML 1,000 ML IV SCH (13:20)
[2020-10-22] MEDS ORDERED: ACETAMINOPHEN 325 MG TAB PO PRN (13:25)
[2020-10-22] MEDS ORDERED: ONDANSETRON INJ 2 MG/ML 2 ML VIAL IV PRN (13:25)
--- NOTE | 2020-10-22 14:49 | Electrocardiogram Report ---
Test Reason : Blood Pressure : / mmHG Vent. Rate : 056 BPM Atrial Rate : 056 BPM P-R Int : 184 ms QRS Dur : 118 ms QT Int : 442 ms P-R-T Axes : 059 065 069 degrees QTc Int : 426 ms Sinus bradycardia Incomplete right bundle branch block Borderline ECG No previous ECGs available Confirmed by Tyree Pena ([id number]) on 10/22/2020 2:48:35 PM Referred By: REFERRED SELF Confirmed By:Tyree Pena
--- NOTE | 2020-10-22 14:58 | Electrocardiogram Report ---
Test Reason : Blood Pressure : / mmHG Vent. Rate : 054 BPM Atrial Rate : 054 BPM P-R Int : 188 ms QRS Dur : 116 ms QT Int : 462 ms P-R-T Axes : 046 052 075 degrees QTc Int : 438 ms Sinus bradycardia Incomplete right bundle branch block Borderline ECG When compared with ECG of 22-OCT-2020 05:47, (unconfirmed) No significant change was found Confirmed by Tyree Pena ([id number]) on 10/22/2020 2:58:31 PM Referred By: REFERRED SELF Confirmed By:Tyree Pena
[2020-10-22] MEDS: buPROPion SR 100 MG TABCR PO SCH ×2 (16:01→20:05)
[2020-10-22] MEDS: LEVOTHYROXINE SODIUM 100 MCG TABLET PO SCH (16:02)
[2020-10-22] MEDS: MULTIVITAMIN TAB PO SCH (16:02)
[2020-10-22] MEDS: lisinopril 2.5 MG TAB PO SCH (17:56)
[2020-10-22] MEDS: CLOPIDOGREL BISULFATE 75 MG TAB PO SCH (20:16)
[2020-10-22] MEDS ORDERED: ATORVASTATIN 40 MG TAB PO SCH (21:00)
[2020-10-23] MEDS: LEVOTHYROXINE SODIUM 100 MCG TABLET PO SCH (06:11)
[2020-10-23 06:53] LABS: Hematocrit (blood only) 39.3 % (37-47); Hemoglobin 12.8 g/dL (12.0-16.0); Mean Corpuscular Hemoglobin 30.1 pg (25-34); Mean Corpuscular Hgb Conc 32.6 g/dL (32-36); Mean Corpuscular Volume 92.5 fL (80-100); Mean Platelet Volume 10.1 fL (7.4-10.4); Platelet Count 265 K/uL (130-400); RDW Coefficient of Variation 13.2 % (11.5-14.5); RDW Standard Deviation 44.7 fL (36.4-46.3); Red Blood Count 4.25 M/uL (4.2-5.4); White Blood Count 4.21 K/uL (4.8-10.8)
[2020-10-23 07:43] LABS: Albumin Globulin Ratio 0.9 (0.9-2); Albumin Level 3.3 gm/dl (3.4-5.0); BUN Creatinine Ratio 19.9 (10-20); Bilirubin,Total 0.3 mg/dl (0.2-1); Calcium 8.3 mg/dl (8.5-10.1); Creatinine Clr Calc Pharmacy 106.6 ml/min; Est GFR (African American) 113.3 ml/min; Est GFR (Non-African American) 97.8 ml/min; Globulin 3.5 gm/dl (2.5-4.0); Magnesium 2.2 mg/dl (1.8-2.4); Phosphorus 3.4 mg/dl (2.5-4.9); Potassium 3.6 mmol/L (3.5-5.1); Total Protein 6.8 gm/dl (6.4-8.2)
[2020-10-23] MEDS: CLOPIDOGREL BISULFATE 75 MG TAB PO SCH (07:46)
[2020-10-23] MEDS: lisinopril 2.5 MG TAB PO SCH (07:47)
[2020-10-23] MEDS: buPROPion SR 100 MG TABCR PO SCH (07:47)
[2020-10-23] MEDS: MULTIVITAMIN TAB PO SCH (07:47)
[2020-10-23 08:54] LABS: Estimated Average Glucose 111 mg/dl; Hemoglobin A1C 5.5 % (4.5-5.6)
[2020-10-23] MEDS ORDERED: ASPIRIN 81 MG ECTAB PO SCH (09:00)
--- NOTE | 2020-10-23 09:38 | Cardiology Progress Note ---
Date of Service October 23, 2020 Assessment & Plan (1) Acute non-ST elevation myocardial infarction (NSTEMI): Patient is a 54-year-old female with concerning presentation with symptoms of rest chest discomfort waking her from sleep. EKGs without acute changes however troponins increased and continued to increase during hospitalization. Diagnostic cardiac catheterization demonstrated branch vessel long thin stenosis of the distal circumflex vessel and a 40% narrowing in the proximal LAD. No high-grade obstruction in the LAD or signs of dissection. Focal wall motion abnormality was observed at the apex on both echocardiogram and LV angiography reflecting area of myocardial injury. Area did correlate to the distribution of branch vessel of the circumflex. Overall systolic function is preserved No EKG evolution, no arrhythmias on telemetry Discussed treatment and management in detail with patient as well as by phone. Medical therapy warranted by current findings. Beta-etta contraindicated due to resting bradycardia. We will plan on dual antiplatelet therapy with aspirin and clopidogrel for 3 months. Low-dose ASHANTI inhibitor added with lisinopril 2.5 mg/day. Statin with atorvastatin 40 mg p.o. daily. Sublingual nitroglycerin as needed Cardiac rehab consultation will be placed Cardiology follow-up in 2 weeks time No strenuous activity x3 days gradually increase activities as tolerance. Off work until Thursday Patient to contact with any worsening symptoms or complaints. Admission and Anticipated Discharge Date Admission Date: October 22, 2020 Physical Exam Constitutional: WD/WN, vitals as above Eyes: PERRL, conjunctivae normal, anicteric sclerae ENMT: Mallampati Class: I Neck: trachea midline, no thyromegaly Respiratory: normal respiratory effort, lungs clear to auscultation Cardiovascular: RRR, no murmur, no edema Rate/Rhythm: regular rate and regular rhythm Heart Sounds: normal S1 and normal S2; no gallop and no murmur Palpation: normal PMI Vessels: normal carotid upstroke and radial pulses present; no JVD and no carotid bruit Extremities: no edema Gastrointestinal (Abdomen): normal bowel sounds, soft, nontender, no hepatospl enomegaly Musculoskeletal: no cyanosis or clubbing, extremities motor strength 5/5 Skin: no rashes, warm and dry Neurologic: PERRL, EOMI, accommodation nl, no face palsy, no dysarthria Psychiatric: A+Ox3, euthymic affect Results & Data ([place]) Vital Signs (Past 12 Hours) Vital Signs Temp Pulse Resp BP Pulse Ox 10/23/20 07:07 36.8 C 58 L 18 122/45 L 96 10/23/20 03:25 36.8 C 65 20 106/63 94 10/22/20 23:22 36.6 C 55 L 20 128/70 96 Laboratory Results Laboratory Results - last 24 hr 10/22/20 10/22/20 10/23/20 08:29 14:00 01:45 WBC RBC Hgb Hct MCV MCH MCHC RDW Std Deviation RDW Coeff of Shawn Plt Count MPV Sodium Potassium Chloride Carbon Dioxide Anion Gap BUN Creatinine Est Cr Clr Drug Dosing Est GFR ( Amer) Est GFR (Non-Af Amer) BUN/Creatinine Ratio Glucose Estimat Average Glucose Hemoglobin A1c Calcium Phosphorus Magnesium Total Bilirubin AST ALT Alkaline Phosphatase Troponin I 2.520 H* 15.300 H* Total Protein Albumin Globulin Albumin/Globulin Ratio Triglycerides Cholesterol LDL Cholesterol, Calc VLDL Cholesterol, Calc HDL Cholesterol Cholesterol/HDL Ratio SARS-CoV-2 (PCR) NEGATIVE 10/23/20 10/23/20 10/23/20 05:56 05:56 05:56 WBC 4.21 L RBC 4.25 Hgb 12.8 Hct 39.3 MCV 92.5 MCH 30.1 MCHC 32.6 RDW Std Deviation 44.7 RDW Coeff of Shawn 13.2 Plt Count 265 MPV 10.1 Sodium 141 Potassium 3.6 Chloride 110 H Carbon Dioxide 26 Anion Gap 4.0 BUN 14 Creatinine 0.68 Est Cr Clr Drug Dosing 106.6 Est GFR ( Amer) 113.3 Est GFR (Non-Af Amer) 97.8 BUN/Creatinine Ratio 19.9 Glucose 89 Estimat Average Glucose 111 Hemoglobin A1c 5.5 Calcium 8.3 L Phosphorus 3.4 Magnesium 2.2 Total Bilirubin 0.3 AST 42 H ALT 26 Alkaline Phosphatase 56 Troponin I Total Protein 6.8 Albumin 3.3 L Globulin 3.5 Albumin/Globulin Ratio 0.9 Triglycerides 97 Cholesterol 201 H LDL Cholesterol, Calc 122 VLDL Cholesterol, Calc 19 HDL Cholesterol 60 Cholesterol/HDL Ratio 3 SARS-CoV-2 (PCR) 10/23/20 08:42 WBC RBC Hgb Hct MCV MCH MCHC RDW Std Deviation RDW Coeff of Shawn Plt Count MPV Sodium Potassium Chloride Carbon Dioxide Anion Gap BUN Creatinine Est Cr Clr Drug Dosing Est GFR ( Amer) Est GFR (Non-Af Amer) BUN/Creatinine Ratio Glucose Estimat Average Glucose Hemoglobin A1c Calcium Phosphorus Magnesium Total Bilirubin AST ALT Alkaline Phosphatase Troponin I 9.090 H* Total Protein Albumin Globulin Albumin/Globulin Ratio Triglycerides Cholesterol LDL Cholesterol, Calc VLDL Cholesterol, Calc HDL Cholesterol Cholesterol/HDL Ratio SARS-CoV-2 (PCR)
--- NOTE | 2020-10-23 14:43 | Hospitalist Progress Note ---
Date of Service October 23, 2020 Assessment & Plan (1) Acute non-ST elevation myocardial infarction (NSTEMI): Present on admission with chest pain Troponin on admission 0.036, then increased to 0.119->2.5->15.3, now trending down 9.09 EKG showed no significant ST changes Pt was started on Heparin drip , that was discontinued after cardiac cath showed no significant blockage She was taken to cardiac cath with: Left anterior descending: Type III in distribution, it gives rise to 2 tiny diagonals and a moderate-sized third diagonal in its midportion before coursing to the apex. Within the left anterior descending there is a 40% narrowing in its very proximal segment, smooth Left circumflex: Nondominant giving rise to a small first marginal and a large long second marginal branch and a single posterior lateral branch. Within the distal portion of the second marginal branch there is an eccentric 75% stenosis Right coronary artery: Moderately large, dominant distribution giving rise to a large sinoatrial branch 2 small RV branches and at the AV groove a long posterior descending artery and along the AV groove a bifurcating terminal posterior ventricular branch there is no disease in the right coronary artery No arrhythmia on telemonitor Cholesterol 201, LDL 122, HDL 60 and triglycerides 97 Cardiology on board Case discussed with Dr. Johnson that recommended dual antiplatelet therapy with aspirin and clopidogrel for 3 months. Low-dose ASHANTI inhibitor added with lisinopril 2.5 mg/day, atorvastatin 40 mg p.o. daily. Sublingual nitroglycerin as needed. Beta-etta contraindicated due to resting bradycardia. Will need referral to cardiac rehab No strenuous activity x3 days, then gradually increase activities as tolerance. Cardiology follow-up in 2 weeks time Asymptomatic currently Ok from cardiology standpoint to discharge home today (2) Anemia: History of such, hemoglobin is stable at 12.8 (3) Anxiety: Continue Wellbutrin (4) Hypothyroidism: TSH wnl Continue levothyroxine 100 mcg daily Mild Elevate AST AST 42 today Check CMP in 1-2 week while on statin Asymptomatic DVT PPx was on IV heparin drip/Ambulate CODE: Full code Dispo: Discharge home today Admission and Anticipated Discharge Date Admission Date: October 22, 2020 Subjective Pt was seen and examined for follow of chest pain Lying in bed with no distress watching TV Patient said that she feels fine she has been walking in the hallway with no chest discomfort Currently denies any chest pain, palpitation, dizziness, and shortness of breath. Review of Systems Review of Systems: All systems reviewed & are unremarkable except as noted in Subjective Physical Exam Physical Exam: General- No acute distress Head- atraumatic Eyes- PERRL, EOMI, ENT- oropharynx clear Neck- supple, no JVD Lungs- clear to auscultation Heart- regular rhythm; no murmur Abdomen- normal bowel sounds, soft, nontender Extremities- no calf tenderness, no hematoma in right wrist area Neuro- alert, oriented x 3; PERRL, EOMI; no facial palsy; no dysarthria Skin- warm & dry Results & Data Results & Data ([facility]) Vital Signs (Past 12 Hours) Vital Signs Temp Pulse Resp BP BP Pulse Ox 10/23/20 11:03 36.8 C 59 L 18 123/73 97 10/23/20 07:07 36.8 C 58 L 18 122/45 L 96 10/23/20 03:25 36.8 C 65 20 106/63 94
--- NOTE | 2020-10-23 15:21 | Electrocardiogram Report ---
Test Reason : Blood Pressure : / mmHG Vent. Rate : 051 BPM Atrial Rate : 051 BPM P-R Int : 190 ms QRS Dur : 110 ms QT Int : 478 ms P-R-T Axes : 054 068 095 degrees QTc Int : 440 ms Sinus bradycardia Incomplete right bundle branch block Borderline ECG When compared with ECG of 22-OCT-2020 08:32, No significant change was found Confirmed by Tyree Pena ([id number]) on 10/23/2020 3:20:47 PM Referred By: REFERRED SELF Confirmed By:Tyree Pena
--- NOTE | 2020-11-01 10:03 | Discharge Summary ---
Date of Service October 23, 2020 Admission HPI Per Admitting Provider This is a 54-year-old female with PMHx of hypothyroidism, anemia, postmenopausal bleeding who presents with acute onset of substernal chest pain which did not radiate, which woke her from sleep at 0230 this morning. She took some Tylenol which did not improve her pain. She was unable to go back to sleep. She then presented to the ER because when she was getting ready for work noticed the pain was still there.. Patient reports doingn home improvements yesterday and hanging drywall, and thought that it could possibly be musculoskeletal. She and her ate [place] last evening and thought this could also be heartburn, but has never had heartburn before. 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 Denies tobacco use. Pt reports mother had a pacemaker placed for something, but as a complication to having the procedure from a puncture to the pericardial sac and filling with blood. She is tearful intermittently when talking about this, and is anxious about never having had any other medical issues before in her life. Here in the ER her first troponin was negative, on repeat after 2 hours troponin was positive at 0.1. There are no EKG changes. He has been started on heparin drip and given a full dose aspirin in the ER. Admission Exam Per Admitting Provider General: awake, alert, no apparent distress, + anxious Head: Normocephalic, atraumatic ENT: PERRL, EOMI, no pharyngeal exudate, mucous membranes moist Chest: Clear to auscultation, on room air, no adventitious breath sounds Cardiac: No pain reproducible of chest, Regular rate and rhythm, no murmur, no JVD, normal peripheral pulses, good capillary refill Abdominal: NABS x 4 quadrants, soft, nondistended, nontender to palpation, no rebound or guarding Extremities: Normal inspection, no peripheral edema or erythema, calfs nontender to palpation Psych: Normal mood and affect Neuro: AAO x 3, strength intact bilaterally and rated 5/5, no motor deficits, speech is clear, no peripheral sensory deficits Principal Diagnosis Acute non-ST elevation myocardial infarction (NSTEMI): Discharge Exam General- No acute distress Head- atraumatic Eyes- PERRL, EOMI, ENT- oropharynx clear Neck- supple, no JVD Lungs- clear to auscultation Heart- regular rhythm; no murmur Abdomen- normal bowel sounds, soft, nontender Extremities- no calf tenderness, no hematoma in right wrist area Neuro- alert, oriented x 3; PERRL, EOMI; no facial palsy; no dysarthria Skin- warm & dry Discharge Data Allergies Allergy/AdvReac Type Severity Reaction Status Date / Time No Known Allergies Allergy Verified 10/22/20 07:33 Consultations 10/22/20 08:36 ED Decision to Admit Stat 10/22/20 13:25 Consult Cardiology Routine 10/23/20 10:07 Consult Cardiac Rehabilitation Routine Procedures Performed Operation Date: 10/22/20 13:00 Actual Procedures p Cineradiography w/Routine Exam - Armando Johnson MD p Cath, Left with Cors and Vent - Armando Johnson MD Ordered Studies 10/22/20 11:47 CL Cath Imgs for PACS use only Stat XR chest 1V portable HISTORY: 54 years-old Female Chest Pain acute atypical chest pain COMPARISON: None TECHNIQUE: Portable AP view of the chest FINDINGS: Cardiomediastinal and hilar silhouettes are within normal limits. No pneumothorax, pleural effusion, airspace consolidation or overt pulmonary edema. Bones of the chest appear grossly intact. IMPRESSION: No acute process. ACT 112: Negative or not required by law. The above report was generated using voice recognition software. It may contain grammatical, syntax or spelling errors. Electronically signed by: Seferino Crowley M.D. 10/22/2020 7:10 AM Dictated: 10/22/20 0709Transcribed: 10/22/20 0709 Hospital Course (1) Acute non-ST elevation myocardial infarction (NSTEMI): Present on admission with chest pain Troponin on admission 0.036, then increased to 0.119->2.5->15.3, now trending down 9.09 EKG showed no significant ST changes Pt was started on Heparin drip , that was discontinued after cardiac cath showed no significant blockage She was taken to cardiac cath with: Left anterior descending: Type III in distribution, it gives rise to 2 tiny diagonals and a moderate-sized third diagonal in its midportion before coursing to the apex. Within the left anterior descending there is a 40% narrowing in its very proximal segment, smooth Left circumflex: Nondominant giving rise to a small first marginal and a large long second marginal branch and a single posterior lateral branch. Within the distal portion of the second marginal branch there is an eccentric 75% stenosis Right coronary artery: Moderately large, dominant distribution giving rise to a large sinoatrial branch 2 small RV branches and at the AV groove a long posterior descending artery and along the AV groove a bifurcating terminal posterior ventricular branch there is no disease in the right coronary artery No arrhythmia on telemonitor Cholesterol 201, LDL 122, HDL 60 and triglycerides 97 Cardiology on board Case discussed with Dr. Johnson that recommended dual antiplatelet therapy with aspirin and clopidogrel for 3 months. Low-dose ASHANTI inhibitor added with lisinopril 2.5 mg/day, atorvastatin 40 mg p.o. daily. Sublingual nitroglycerin as needed. Beta-etta contraindicated due to resting bradycardia. Will need referral to cardiac rehab No strenuous activity x3 days, then gradually increase activities as tolerance. Cardiology follow-up in 2 weeks time Asymptomatic currently Ok from cardiology standpoint to discharge home today (2) Anemia: History of such, hemoglobin is stable at 12.8 (3) Anxiety: Continue Wellbutrin (4) Hypothyroidism: TSH wnl Continue levothyroxine 100 mcg daily Mild Elevate AST AST 42 today Check CMP in 1-2 week while on statin Asymptomatic DVT PPx was on IV heparin drip/Ambulate CODE: Full code Dispo: Discharge home today Total Time Total Time Spent Total Time Spent (In Minutes): 35 minutes Total Time Includes: Examination of the Patient, Discharge Planning, Medication Reconciliation, Communication With Other Providers and Other Discharge Plan Discharge Items Patient Disposition: Home - Self-Care Reason For Visit: nstemi Discharge Diagnosis: Acute non-ST elevation myocardial infarction (NSTEMI): Activity: Resume your previous activity Non-emergency contact: Primary Care Provider and Marketing And Communications Officer Call non-emergency contact if: you have any medication questions Follow-up/Referrals: Monserrat Ingram MD [Hospitalist] - (Date & Time 10/26/2020 9:00 AM Provider Joanna Sibley MD Department [facility] ) Diet: Heart Healthy Addtl Attending Provider Instructions: Follow with primary care provider Dr. Sibley (Dr. Ingram's colleague) on at9:00 AM at the [facility] Follow up with cardiology Dr. Johnson in 2 weeks Continue dual antiplatelet therapy with aspirin and clopidogrel for 3 months. Monitor for any abnormal bleeding while on aspirin and Plavix such as blood in urine, stools, .... Notify your provider for any abnormal bleeding avoid any additional NSAIDs (Motrin, Aleve, Advil, Naproxen, Ibuprofen, ....) due to risk of bleeding Will need referral to cardiac rehab (Your provider or cardiology will arrange for the referral) No strenuous activity x3 days, then gradually increase activities as tolerance. Check LFT in 1-2 weeks to monitor liver enzymes since you are starting on Atorvastatin Keep the area for the cardiac cath clean and dry to avoid any infection Do not use creams, lotions or ointment on the wound site Do not take a bath, tub soak, go in a Jacuzzi, or swim in a pool or bocanegra for one week after the procedure. Do not participate in strenuous activities for 3 days after the procedure. Gradually increase your activities until you reach your normal activity level within two days after the procedure. Avoid heavy lifting (more than 10 pounds) and pushing or pulling heavy objects for the first 5 days after the procedure. Pending Studies at Discharge: No Stand-Alone Forms: My [facility], Work/School Release, Smoking Cessation Medications and DC Order Prescriptions: New clopidogrel 75 mg Tablet 75 mg PO QAM Qty: 30 RF: 0 atorvastatin 40 mg Tablet 40 mg PO QPM Qty: 30 RF: 0 lisinopril 2.5 mg Tablet 2.5 mg PO QAM Qty: 30 RF: 0 nitroglycerin [Nitrostat] 0.4 mg Tablet, Sublingual 0.4 mg sublingual Q5M PRN (Reason: chest pain) Qty: 30 RF: 0 aspirin 81 mg Tablet,Delayed Release (Dr/Ec) 81 mg PO QAM Qty: 30 RF: 0 Continued multivitamin tablet 1 tab PO DAILY Qty: 30 RF: 0 bupropion HCl 200 mg tablet sustained-release 12 hr 200 mg PO BID Qty: 180 RF: 3 levothyroxine 100 mcg tablet 100 mcg PO DAILY Qty: 90 RF: 3 acetaminophen [Tylenol] 325 mg Tablet 325 mg PO QID PRN (Reason: Pain) RF: 0 Discharge Orders: Discharge Order (Routine); Ordered 10/23/20 Ordered By: Miguel Yancey Admission Data Admit Date/Time: 10/22/20 08:58 Attending Provider: Miguel Yancey Admit Provider: Miguel Yancey Primary Care Provider: PCP,NO Other Providers: Armando Johnson Other Interventions: Discharge Summary Assessment (RN) Last Done: 10/23/20 15:53
== END 2020-10-23 16:19 | disposition home or self-care (01) | DRG 282 ==
LOC: ED 05:40 → 2S 08:58
DX: I21.4 Non-ST elevation (NSTEMI) myocardial infarction; F41.9 Anxiety disorder, unspecified; M19.90 Unspecified osteoarthritis, unspecified site; R74.01 Elevation of levels of liver transaminase levels; I25.10 Atherosclerotic heart disease of native coronary artery without angina pectoris; R00.1 Bradycardia, unspecified; E03.9 Hypothyroidism, unspecified; Z79.899 Other long term (current) drug therapy; Z79.890 Hormone replacement therapy; Z79.82 Long term (current) use of aspirin; D64.9 Anemia, unspecified; Z81.8 Family history of other mental and behavioral disorders; F32.9 Major depressive disorder, single episode, unspecified; Z51.81 Encounter for therapeutic drug level monitoring

== ENCOUNTER 2022-08-11 15:30 | Inpatient (IN) ==
--- NOTE | 2022-08-11 15:44 | ED Triage Note ---
Date of Service August 11, 2022 History of Present Illness This patient was briefly evaluated while in triage. An abbreviated physical exam was performed. This patient is a 56-year-old Female who presents to the ED for evaluation of chest pain/tightness that started about 4 hours ago. She denies any radiation of the pain. She does report some associated racing heart and nausea. She had a similar episode of pain that occurred 2 days ago and lasted about 4 hours. She was working when pain started. She had a heart attack 2 years ago. Physical Exam VITALS: Vitals are noted on the nurse's note and reviewed by myself. GENERAL: This is a 56-year-old female, anxious appearing but in no significant distress, well-developed well-nourished. SKIN: The skin was without rashes. HEART: Regular rate and rhythm without murmurs gallops or rubs. LUNGS: Clear to auscultation bilaterally without wheezes, rales or rhonchi. No retractions or accessory muscle use. NEURO: Patient was alert and oriented to person place and time. Initial orders for labs and / or imaging were placed and patient was placed in the waiting area until a bed is available. Please see further documentation for the full ED course.
--- NOTE | 2022-08-11 16:08 | XRay Report ---
XR chest 1V not portable CLINICAL HISTORY: Chest pain, nonspecific TECHNIQUE: Single frontal radiograph of the chest was obtained. Comparison: Comparison is made to chest radiograph 10/22/2020 FINDINGS: No lines and tubes are seen. Calcified aortic knob is seen. The lungs are clear. No evidence of pleur al effusion or pneumothorax. IMPRESSION: No acute chest disease. ACT 112: Negative or not required by law. Electronically signed by: Hugo Gold M.D. 08/11/2022 4:06 PM
[2022-08-11 16:27] LABS: Basophils # (auto) 0.04 K/uL (0-0.2); Basophils % (auto) 0.7 %; Eosinophils # (auto) 0.02 K/uL (0-0.50); Eosinophils % (auto) 0.3 %; Hematocrit (blood only) 41.3 % (37.0-47.0); Immature Granulocytes # (auto) 0.01 K/uL (0.01-0.20); Immature Granulocytes % (auto) 0.2 %; Lymphocytes # (auto) 1.77 K/uL (1.2-3.4); Lymphocytes % (auto) 29.9 %; Mean Corpuscular Hemoglobin 30.4 pg (25.0-34.0); Mean Corpuscular Hgb Conc 33.9 g/dL (32.0-36.0); Mean Corpuscular Volume 89.6 fL (80.0-100.0); Mean Platelet Volume 10.6 fL (9.4-12.4); Monocytes # (auto) 0.53 K/uL (0.11-0.59); Neutrophils # (auto) 3.54 K/uL (1.40-6.50); Neutrophils % (auto) 59.9 %; Platelet Count 249 K/uL (130-400); RDW Standard Deviation 42.9 fL (36.4-46.3); Red Blood Count 4.61 M/uL (4.20-5.40); White Blood Count 5.91 K/ul (4.8-10.8)
[2022-08-11] MEDS ORDERED: NITROGLYCERIN SL 0.4 MG/TAB TAB SL STA (16:29)
[2022-08-11] MEDS ORDERED: ASPIRIN CHEW 324 MG PO STA (16:32)
--- NOTE | 2022-08-11 16:32 | Emergency Department Note ---
Impression & Plan Chest pain, Abnormal LFTs, Abnormal ECG ED Provider Note NAME: HAILEE KAY AGE: 56 SEX: F : 1965 ARRIVES VIA: Walk-In INFORMANT: Patient ED PROVIDER(S): Beto Choudhary DO CHIEF COMPLAINT: chest pain HPI: Patient is a 56-year-old female with a past medical history of CAD who presents to the ED for midsternal chest pressure. Started around 11. She describes as a heaviness in the middle of her sternum. Does radiate up to her left shoulder. No arm pain or jaw pain. No significant shortness of breath. No belly pain, nausea, vomiting, or diarrhea. No dysuria, urgency, or frequency. No other exacerbating or remitting factors. She notes this does feel like her previous [place]. She received no stents at that point. She already took a baby aspirin prior to arrival. She did not use her nitro. PAST MEDICAL HISTORY:See Below PAST SURGICAL HISTORY:See Below FAMILY HISTORY:See Below SOCIAL HISTORY:See Below HOME MEDICATIONS:See Below ALLERGIES:See Below VITALS:See Below PHYSICAL EXAMINATION: GENERAL: Sitting up in bed, alert, well appearing, well nourished, no distress, non-toxic EYE EXAM: normal conjunctiva. OROPHARYNX: mucous membranes are moist NECK: supple, no nuchal rigidity, no adenopathy, non-tender LUNGS: Clear to auscultation. Normal chest wall mechanics HEART: no murmurs, S1 normal and S2 normal ABDOMEN: abdomen soft, non-tender, normo-active bowel sounds, no masses, no rebound or guarding. UPPER EXTREMITIES: upper extremities are grossly normal. LOWER EXTREMITIES: No pitting edema. Calves are equal bilateral NEURO EXAM: Normal sensorium, cranial nerves II-XII grossly intact, normal speech, no gross weakness of arms, no gross weakness of legs. MEDICAL DECISION MAKING: Patient is a 56-year-old female who presents ER for above-stated complaint. IV was established blood was obtained. External records were reviewed. Does have a previous history of an NSTEMI as well as dyslipidemia who presents ER for midsternal chest pressure. Upon arrival she was given nitro and pain resolved. EKG shows worsening ST depressions compared to previous. Chest x-ray was clean. Labs show no significant leukocytosis or anemia. BMP along with LFTs bilirubin was remarkable for T. bili of 1.1 and a mild transaminitis. No significant b jany pain. COVID was negative. Discussed with the hospitalist for further evaluation management and treatment. Ultrasound is pending upon admission of the gallbladder although I do favor this is cardiac. Currently chest pain-free. Ultrasound of the gallbladder was unremarkable. Triage Nursing notes reviewed. Limited review of prior medical records performed Vital Signs: reviewed and remarkable for no significant abnormalities Differential diagnosis: Cardiac ischemia, aortic dissection, pulmonary embolism, pneumothorax, pneumonia, pericarditis, myocarditis, esophageal rupture, GERD, cholecystitis, pancreatitis, musculoskeletal, as well as other pathologies. ER treatment provided: See below Diagnostics interpreted by me include EKG and cardiac monitoring as listed below: -Cardiac Monitoring: An order was placed for continuous cardiac monitoring. The monitor shows a rate of 80 with sinus rhythm. -ECG: Sinus rhythm rate [address] depressions in the inferior leads as well as V3 through V6 QTc 598 ST wave changes progressed from previous performed in May 25 -Laboratory studies:Interpreted by me as stated above in MDM and shown below. Imaging studies: Xrays: As interpreted by me: Portable AP upright 1 view of the chest shows no pneumonia CTs show: none Ultrasound the gallbladder was unremarkable Consultation(s): As described in MDM discussed with the hospitalist for further evaluation management and treatment Procedures:none Critical Care: None Past Med/Surg History Medical History Acute non-ST elevation myocardial infarction (NSTEMI) Anemia Anxiety Chronic venous insufficiency Dyslipidemia Endometrial thickening on ultrasound Generalized osteoarthritis Hypothyroidism Post-menopausal bleeding Surgical History H/O dilation and curettage Family History Sister Diabetes Father Lung cancer Uncle Myocardial infarction Mother Heart disease complication during pacemaker placement Other Cancer Depression Denies family history of Ovarian cancer Prostate cancer Breast cancer Colorectal cancer Social History Smoking Status: Never smoker Second Hand Exposure: No; Hx Alcohol Use: No Hx Substance Use: No Preferred Language: German Communication Ability: Effective Visual Impairment: No Limitations Hearing Ability: Normal 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 Plant 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: No Beliefs That Will Affect Care: None marital status: Current Living Situation: Spouse current occupational status: employed current occupation: Works at [email or web address] Feels Safe at Home: Yes Childhood Exposure to Second-Hand Smoke: Yes Dental Care, Regularly: Yes Physical Activity Frequency: Daily Seatbelt Use: always Sunscreen Use: No Assistive Devices: None Allergies Allergies Allergy/AdvReac Type Severity Reaction Status Date / Time No Known Allergies Allergy Verified 05/16/21 19:35 Home Meds Home Medications Medication Instructions Recorded Confirmed atorvastatin 80 mg tablet 80 mg PO QPM 08/11/22 08/11/22 citalopram 10 mg tablet 10 mg PO DAILY 08/11/22 08/11/22 levothyroxine 100 mcg tablet 100 mcg PO DAILYBB 08/11/22 08/11/22 Previous Rx's Medication Instructions Recorded multivitamin 1 tab PO DAILY #30 tabs 11/05/18 bupropion HCl 200 mg tablet,12 hr 200 mg PO BID #180 ea 02/29/20 sustained-release aspirin 81 mg tablet,delayed 81 mg PO QAM #30 tabs 10/23/20 release nitroglycerin 0.4 mg sublingual 0.4 mg sublingual Q5M PRN chest 10/23/20 tablet (Nitrostat) pain #30 tabs Results & Data (ED) Vital Signs Vital Signs - 24 hr 08/11/22 15:38 08/11/22 16:25 08/11/22 16:25 Temperature 36.5 C Temperature Source Temporal Artery Scan Pulse Rate 88 69 Pulse Rate [Left Finger] 67 Pulse Rate from SpO2 Sensor Pulse Rhythm Regular Pulse Rhythm [Left Finger] Regular Pulse Strength [Left Finger] Normal Respiratory Rate 18 17 18 Respiratory Effort / Characteristics Non-Labored Spontaneous Non-Labored Spontaneous Respiratory Depth Normal Normal Respiratory Pattern Regular Regular Blood Pressure 137/77 Blood Pressure [Right Arm] 136/71 Blood Pressure Mean 97 Blood Pressure Mean [Right Arm] 92 Blood Pressure Position Sitting Blood Pressure Position [Right Arm] Lying Pulse Oximetry 97 97 98 Oxygen Delivery Method Room Air Room Air Room Air Sepsis Recent Fever Within 48 Hours No Sepsis New/Unexplained Change in Mental Status N/A Sepsis Action Taken by Nursing No Action Required 08/11/22 16:28 08/11/22 16:28 08/11/22 16:30 Temperature Temperature Source Pulse Rate 77 68 Pulse Rate [Left Finger] Pulse Rate from SpO2 Sensor 70 Pulse Rhythm Pulse Rhythm [Left Finger] Pulse Strength [Left Finger] Respiratory Rate 17 Respiratory Effort / Characteristics Respiratory Depth Respiratory Pattern Blood Pressure 145/87 H Blood Pressure [Right Arm] Blood Pressure Mean 106 Blood Pressure Mean [Right Arm] Blood Pressure Position Blood Pressure Position [Right Arm] Pulse Oximetry 98 Oxygen Delivery Method Sepsis Recent Fever Within 48 Hours Sepsis New/Unexplained Change in Mental Status Sepsis Action Taken by Nursing 08/11/22 16:30 08/11/22 16:40 08/11/22 16:50 Temperature Temperature Source Pulse Rate 72 79 65 Pulse Rate [Left Finger] Pulse Rate from SpO2 Sensor 65 76 65 Pulse Rhythm Pulse Rhythm [Left Finger] Pulse Strength [Left Finger] Respiratory Rate 15 19 15 Respiratory Effort / Characteristics Respiratory Depth Respiratory Pattern Blood Pressure Blood Pressure [Right Arm] Blood Pressure Mean Blood Pressure Mean [Right Arm] Blood Pressure Position Blood Pressure Position [Right Arm] Pulse Oximetry 96 97 96 Oxygen Delivery Method Sepsis Recent Fever Within 48 Hours Sepsis New/Unexplained Change in Mental Status Sepsis Action Taken by Nursing 08/11/22 16:51 08/11/22 16:51 08/11/22 17:00 Temperature Temperature Source Pulse Rate 64 Pulse Rate [Left Finger] Pulse Rate from SpO2 Sensor 63 Pulse Rhythm Pulse Rhythm [Left Finger] Pulse Strength [Left Finger] Respiratory Rate 16 Respiratory Effort / Characteristics Respiratory Depth Respiratory Pattern Blood Pressure 130/68 148/69 H Blood Pressure [Right Arm] Blood Pressure Mean 88 95 Blood Pressure Mean [Right Arm] Blood Pressure Position Blood Pressure Position [Right Arm] Pulse Oximetry 96 Oxygen Delivery Method Sepsis Recent Fever Within 48 Hours Sepsis New/Unexplained Change in Mental Status Sepsis Action Taken by Nursing 08/11/22 17:00 08/11/22 17:10 08/11/22 17:20 Temperature Temperature Source Pulse Rate 62 70 69 Pulse Rate [Left Finger] Pulse Rate from SpO2 Sensor 62 71 67 Pulse Rhythm Pulse Rhythm [Left Finger] Pulse Strength [Left Finger] Respiratory Rate 14 22 22 Respiratory Effort / Characteristics Respiratory Depth Respiratory Pattern Blood Pressure Blood Pressure [Right Arm] Blood Pressure Mean Blood Pressure Mean [Right Arm] Blood Pressure Position Blood Pressure Position [Right Arm] Pulse Oximetry 97 97 97 Oxygen Delivery Method Sepsis Recent Fever Within 48 Hours Sepsis New/Unexplained Change in Mental Status Sepsis Action Taken by Nursing Laboratory Data 08/11/22 15:57 08/11/22 15:58 Lab Results 08/11/22 08/11/22 Range/Units 15:57 15:58 WBC 5.91 (4.8-10.8) K/ul RBC 4.61 (4.20-5.40) M/uL Hgb 14.0 (12.0-16.0) g/dl Hct 41.3 (37.0-47.0) % MCV 89.6 (80.0-100.0) fL MCH 30.4 (25.0-34.0) pg MCHC 33.9 (32.0-36.0) g/dL RDW Std Deviation 42.9 (36.4-46.3) fL RDW Coeff of Shawn 13.0 (11.5-14.5) % Plt Count 249 (130-400) K/uL MPV 10.6 (9.4-12.4) fL Immature Gran % (Auto) 0.2 % Neut % (Auto) 59.9 % Lymph % (Auto) 29.9 % [place] % (Auto) 9.0 % Eos % (Auto) 0.3 % Baso % (Auto) 0.7 % Neut # (Auto) 3.54 (1.40-6.50) K/uL Lymph # (Auto) 1.77 (1.2-3.4) K/uL [place] # (Auto) 0.53 (0.11-0.59) K/uL Eos # (Auto) 0.02 (0-0.50) K/uL Baso # (Auto) 0.04 (0-0.2) K/uL Immature Gran # (Auto) 0.01 (0.01-0.20) K/uL Sodium 138 (136-145) mmol/L Potassium 3.8 (3.5-5.1) mmol/L Chloride 105 (98-107) mmol/L Carbon Dioxide 23 (21-32) mmol/L Anion Gap 10 (3-11) BUN 18 (6-23) mg/dl Creatinine 0.77 (0.6-1.2) mg/dl Est Cr Clr Drug Dosing 82.5 ml/min Est GFR ( Amer) 98.6 ml/min Est GFR (Non-Af Amer) 85.1 ml/min BUN/Creatinine Ratio 23.4 H (10-20) Glucose 112 H (70-99(Fasting)) mg/dl Calcium 9.4 (8.6-10.3) mg/dl Total Bilirubin 1.1 H (0.2-1.0) mg/dl AST 50 H (13-39) U/L ALT 105 H (7-52) U/L Alkaline Phosphatase 54 (34-104) U/L Troponin I High Sens 5.1 (0-14) pg/ml Total Protein 7.6 (6.0-8.3) gm/dl Albumin 4.7 (3.4-5.0) gm/dl Globulin 2.9 (2.5-4.0) gm/dl Albumin/Globulin Ratio 1.6 (0.9-2) Administered Medications Nitroglycerin (Nitroglycerin Sl 0.4 Mg/Tab Tab) 0.4 mg SL Q5M PRN PRN Reason: chest pain Stop: 09/10/22 20:50 Last Admin: 08/11/22 21:59 Dose: 0.4 mg Documented By: FRITZ Discontinued Medications Aspirin (Aspirin Chew 324 Mg) 243 mg PO NOW STA Stop: 08/11/22 16:33 Last Admin: 08/11/22 16:36 Dose: 243 mg Documented By: ADRIAN Atorvastatin Calcium (Atorvastatin 40 Mg Tab) 80 mg PO QPM NEERAJ Stop: 09/10/22 18:59 Last Admin: 08/11/22 21:32 Dose: Not Given Documented By: FRITZ Bupropion HCl (Bupropion Sr 100 Mg Tabcr) 200 mg PO BID NEERAJ Stop: 09/10/22 20:59 Last Admin: 08/11/22 21:32 Dose: Not Given Documented By: FRITZ Nitroglycerin (Nitroglycerin Sl 0.4 Mg/Tab Tab) 0.4 mg SL NOW STA Stop: 08/11/22 16:30 Last Admin: 08/11/22 16:36 Dose: 0.4 mg Documented By: ORDER DESK CALLER Imaging Data Radiologist's Impression: Chest X-Ray 08/11/22 15:38 XR chest 1V not portable CLINICAL HISTORY: Chest pain, nonspecific TECHNIQUE: Single frontal radiograph of the chest was obtained. Comparison: Comparison is made to chest radiograph 10/22/2020 FINDINGS: No lines and tubes are seen. Calcified aortic knob is seen. The lungs are clear. No evidence of pleural effusion or pneumothorax. IMPRESSION: No acute chest disease. ACT 112: Negative or not required by law. Electronically signed by: Hugo Gold M.D. 08/11/2022 4:06 PM Gallbladder Ultrasound 08/11/22 17:15 US gallbladder CLINICAL HISTORY: epigastric abd pain TECHNIQUE: Multiple real-time sonographic images of the right upper quadrant were obtained. Comparison: None available at the time of this dictation. FINDINGS: The liver is diffusely homogenous with normal contour and echogenicity. No focal mass lesions are seen. No intrahepatic ductal dilatation is seen. No gallstones or sludge are identified within the gallbladder. The gallbladder wall is not thickened. There is no pericholecystic fluid present. A sonographic Lovell's sign was not elicited by the ciaio counter molder. The common duct measures 0.5 cm in diameter at the level of the hepatic artery. The visualized portions of the pancreas appear normal. The right kidney shows normal echogenicity, cortical thickness and renal contour. The right kidney shows no evidence of hydronephrosis or mass. No ascites or free fluid is seen in Seals's pouch. IMPRESSION: Unremarkable right upper quadrant ultrasound. ACT 112: Negative or not required by law. Electronically signed by: Hugo Gold M.D. 08/11/2022 8:03 PM Discharge Plan Visit Data Chief Complaint: TIA Symptoms Stated Complaint: CHEST PAIN SINCE SAT,LIGHT HEADED,BLURRY,NAUSEA ED Provider: Beto Choudhary Discharge Problem: Chest pain, Abnormal LFTs, Abnormal ECG Patient Disposition: Admitted As Inpatient Discharge Instructions Interventions: ED Discharge Assessment Last Done: 08/11/22 20:16
[2022-08-11 16:39] LABS: Albumin Globulin Ratio 1.6 (0.9-2); Albumin Level 4.7 gm/dl (3.4-5.0); BUN Creatinine Ratio 23.4 (10-20); Bilirubin,Total 1.1 mg/dl (0.2-1.0); Calcium 9.4 mg/dl (8.6-10.3); Creatinine Clr Calc Pharmacy 82.5 ml/min; Est GFR (African American) 98.6 ml/min; Est GFR (Non-African American) 85.1 ml/min; Globulin 2.9 gm/dl (2.5-4.0); Potassium 3.8 mmol/L (3.5-5.1); Total Protein 7.6 gm/dl (6.0-8.3)
[2022-08-11 16:45] LABS: Troponin I High Sensitivity 5.1 pg/ml (0-14)
[2022-08-11] MEDS ORDERED: ONDANSETRON INJ 2 MG/ML 2 ML VIAL IV PRN (17:28)
[2022-08-11] MEDS ORDERED: MAGNESIUM HYDROXIDE SUSP 30 ML UDC PO PRN (17:28)
[2022-08-11] MEDS ORDERED: ALUMINUM/MAGNESIUM SUSP 30 ML UDC PO PRN (17:28)
[2022-08-11] MEDS ORDERED: POLYETHYLENE (MIRALAX) 17 GM PACK PO PRN (17:28)
--- NOTE | 2022-08-11 18:13 | History & Physical Report ---
Date of Service August 11, 2022 Assessment & Plan (1) Unstable angina: Plan: 56 y/o female with hx of NSTEMI in 2020 when she presented with substernal CP, initial troponin negative but repeat elevated, who underwent cardiac cath that showed smooth 40% proximal LAD narrowing, 75% narrowing distal circumflex marginal branch and has since been managed medically who now presents with recurrent substernal chest pain/heaviness/pressure, similar to prior NM. Chest pain mostly relieved by nitro. Initial troponin negative. Also noted to have mild transaminitis in the ED though denies GI symptoms such as abdominal pain, vomiting, diarrhea, prior hx of gallbladder issues. - Observe overnight on telemetry - Trend troponin - Repeat EKG in AM, sooner if any recurrent chest pain - Consult cardiology for additional recommendations - Repeat ECHO tomorrow - known subtle prior inferior wall motion abnormality - Lipid panel in AM - RUQ ultrasound ordered by the ED is still pending (2) Abnormal LFTs: Plan: Repeat in AM - last LFTs done outpatient appear to be from August 2021 and were normal U/S pending (3) History of non-ST elevation myocardial infarction (NSTEMI): (4) Dyslipidemia: (5) Hypothyroidism: (6) Anxiety: Plan Continue other home medications as appropriate Pt seen and reviewed with collaborating physician, Dr. Barron. Plan of care discussed and as outlined above. Code Status: Full Code DVT Prophylaxis: Heladio Landon PA-C History of Present Illness Chief Complaint: Chest pain Primary Care Provider: Monserrat Ingram MD This ernie 56 y/o female with prior NSTEMI in 2020, cath without high-grade obstruction in the LAD so being medically managed, hypothyroidism, anxiety, and hyperlipidemia who presents to the ED today with substernal chest pain radiating to her left shoulder. Pt states she was at work, not doing anything strenuous, when she had the sudden onset of chest pressure/heaviness/discomfort in the substernal region that radiated to her left shoulder. This pain does fell similar to prior [place]. She had associated sensation of racing heart, dizziness, nausea, diaphoresis and transient blurred vision. In the ED, she was given sublingual nitro and aspirin with significant improvement in the chest pain. She reports minimal residual discomfort at present. She denies vomiting, [place], recent URI symptoms. She last saw cardiology in July 2022 for routine follow-up and was doing well. She had symptoms of atypical chest pain last fall for which she had an updated ECHO that showed a subtle wall motion abnormality in the inferior wall base that was unchanged from previous. She is no longer on a beta-etta or lisinopril due to low resting heart and borderline BP. Allergies Allergy/AdvReac Type Severity Reaction Status Date / Time No Known Allergies Allergy Verified 05/16/21 19:35 Home Medications Medication Instructions Recorded Confirmed Type multivitamin 1 tab PO DAILY #30 tabs 11/05/18 08/11/22 Rx bupropion HCl 200 mg tablet,12 hr 200 mg PO BID #180 ea 02/29/20 08/11/22 Rx sustained-release aspirin 81 mg tablet,delayed 81 mg PO QAM #30 tabs 10/23/20 08/11/22 Rx release nitroglycerin 0.4 mg sublingual 0.4 mg sublingual Q5M PRN chest 10/23/20 08/11/22 Rx tablet (Nitrostat) pain #30 tabs atorvastatin 80 mg tablet 80 mg PO QPM 08/11/22 08/11/22 History citalopram 10 mg tablet 10 mg PO DAILY 08/11/22 08/11/22 History levothyroxine 100 mcg tablet 100 mcg PO DAILYBB 08/11/22 08/11/22 History Past Med/Surg History Medical History Acute non-ST elevation myocardial infarction (NSTEMI) Anemia Anxiety Chronic venous insufficiency Dyslipidemia Endometrial thickening on ultrasound Generalized osteoarthritis Hypothyroidism Post-menopausal bleeding Surgical History H/O dilation and curettage Family History Sister Diabetes Father Lung cancer Uncle Myocardial infarction Mother Heart disease complication during pacemaker placement Other Cancer Depression Denies family history of Ovarian cancer Prostate cancer Breast cancer Colorectal cancer Social History Smoking Status: Never smoker Second Hand Exposure: No; Hx Alcohol Use: No Hx Substance Use: No Preferred Language: Polish Communication Ability: Effective Visual Impairment: No Limitations Hearing Ability: Normal General Technician Required: No Beliefs That Will Affect Care: None marital status: Current Living Situation: Spouse current occupational status: employed current occupation: Works at [employer] Feels Safe at Home: Yes Childhood Exposure to Second-Hand Smoke: Yes Dental Care, Regularly: Yes Physical Activity Frequency: Daily Seatbelt Use: always Sunscreen Use: No Assistive Devices: None Review of Systems Review of Systems: All systems reviewed & are unremarkable except as noted in HPI & below Constitutional: + sweats; no fever and no chills Eyes: as per Subjective / HPI Ear, Nose, Mouth, Throat: no nasal congestion, no sore throat and no dysphagia Respiratory: no cough and no dyspnea Cardiovascular: as per Subjective / HPI; no syncope and no edema Gastrointestinal: no abdominal pain, no vomiting and no diarrhea/loose stools Genitourinary: no dysuria and no hematuria Musculoskeletal: no back pain and no neck pain Integumentary: no yellowing of the skin Neurologic: + dizziness; no headache(s) Psychiatric: + anxiety Physical Exam Constitutional: well developed and well nourished; no acute distress Eyes: + anicteric sclerae Neck: trachea midline Respiratory: no respiratory distress and no labored breathing Auscultation: lungs clear to auscultation bilaterally; no rales, no rhonchi and no wheezes Cardiovascular: Rate/Rhythm: regular rate and regular rhythm Heart Sounds: no murmur Vessels: dorsalis pedis pulses present and radial pulses present Extremities: no pedal edema Gastrointestinal (Abdomen): Inspection/Auscultation: normal bowel sounds; abdomen not distended Percussion/Palpation: abdomen soft; abdomen nontender Musculoskeletal: Head/Neck/Chest: normocephalic, head atraumatic and neck supple Skin: no jaundice Neurologic: moves all extremities; no focal motor deficits and not confused Psychiatric: Orientation: alert and oriented x 3 Results & Data Results & Data Vital Signs (Past 12 Hours) Vital Signs Temp Pulse Pulse Resp BP BP Pulse Ox 08/11/22 17:00 62 14 97 08/11/22 17:00 148/69 H 08/11/22 16:51 64 16 96 08/11/22 16:51 130/68 08/11/22 16:50 65 15 96 08/11/22 16:40 79 19 97 08/11/22 16:30 72 15 96 08/11/22 16:30 145/87 H 08/11/22 16:28 68 08/11/22 16:28 77 17 98 08/11/22 16:25 69 18 98 08/11/22 16:25 67 17 136/71 97 08/11/22 15:38 36.5 C 88 18 137/77 97 O2 Del Method 08/11/22 17:00 08/11/22 17:00 08/11/22 16:51 08/11/22 16:51 08/11/22 16:50 08/11/22 16:40 08/11/22 16:30 08/11/22 16:30 08/11/22 16:28 08/11/22 16:28 08/11/22 16:25 Room Air 08/11/22 16:25 Room Air 08/11/22 15:38 Room Air Laboratory Results Laboratory Results - last 24 hr 08/11/22 08/11/22 15:57 15:58 WBC 5.91 RBC 4.61 Hgb 14.0 Hct 41.3 MCV 89.6 MCH 30.4 MCHC 33.9 RDW Std Deviation 42.9 RDW Coeff of Shawn 13.0 Plt Count 249 MPV 10.6 Immature Gran % (Auto) 0.2 Neut % (Auto) 59.9 Lymph % (Auto) 29.9 Emery % (Auto) 9.0 Eos % (Auto) 0.3 Baso % (Auto) 0.7 Neut # (Auto) 3.54 Lymph # (Auto) 1.77 [place]y # (Auto) 0.53 Eos # (Auto) 0.02 Baso # (Auto) 0.04 Immature Gran # (Auto) 0.01 Sodium 138 Potassium 3.8 Chloride 105 Carbon Dioxide 23 Anion Gap 10 BUN 18 Creatinine 0.77 Est Cr Clr Drug Dosing 82.5 Est GFR ( Amer) 98.6 Est GFR (Non-Af Amer) 85.1 BUN/Creatinine Ratio 23.4 H Glucose 112 H Calcium 9.4 Total Bilirubin 1.1 H AST 50 H ALT 105 H Alkaline Phosphatase 54 Troponin I High Sens 5.1 Total Protein 7.6 Albumin 4.7 Globulin 2.9 Albumin/Globulin Ratio 1.6 Diagnostic Findings Chest X-Ray 08/11/22 15:38 XR chest 1V not portable CLINICAL HISTORY: Chest pain, nonspecific TECHNIQUE: Single frontal radiograph of the chest was obtained. Comparison: Comparison is made to chest radiograph 10/22/2020 FINDINGS: No lines and tubes are seen. Calcified aortic knob is seen. The lungs are clear. No evidence of pleural effusion or pneumothorax. IMPRESSION: No acute chest disease. ACT 112: Negative or not required by law. Electronically signed by: Hugo Gold M.D. 08/11/2022 4:06 PM Medications Administered Discontinued Medications Aspirin (Aspirin Chew 324 Mg) 243 mg PO NOW STA Stop: 08/11/22 16:33 Last Admin: 08/11/22 16:36 Dose: 243 mg Documented By: TRIM ATTACHER Nitroglycerin (Nitroglycerin Sl 0.4 Mg/Tab Tab) 0.4 mg SL NOW STA Stop: 08/11/22 16:30 Last Admin: 08/11/22 16:36 Dose: 0.4 mg Documented By: TRIM ATTACHER Code Status & VTE Plan VTE Prophylaxis Plan VTE Prophylaxis will be ordered: Yes Supervising Physician Co-Signing Physician Notes I have seen and examined the patient and have discussed the case with the provider above. I agree with the assessment and plan as stated. 56 yo F presents with acute chest pain for hours today resolved with nitro. She reports the pain was substernal with radiation to the left shoulder and up into the left shoulder. This pain was associated with lightheadedness and palpitations. She denied SOB, numbness or tingling. She reports having a similar episode two nights ago on Sat that wasn't as intense. This pain is now resolved. She is a non smoker and takes ASA and statin for medical management of known CAD. She has historically been intolerant to ACEI/ARB or BB. She appears comfortable on physical exam and si euvolemic. Cardiac exam reveals S1/2 heard with no murmurs, gallops or rubs. No peripheral edema and extremities are warm and well perfused. Lungs are clear to auscultation throughout and skin is warm and dry. She has no chest wall tenderness to palpation and is mentating clearly. Studies reviewed including CBC and chemistry, hepatic panel reveals slightly elevated AST and ALT. Initial trop is negative. EKG is without ST changes that would suggest ischemia, sinus rhythm is present. CXR is negative. 1. Unstable angina, h/o CAD 2. Elevated LFTs 56 yo F with unstable angina. Good exercise tolerance at baseline, but two successive episodes of concerning pain at rest. Agree with trending cardiac markers overnight and monitoring on telemetry. Cont ASA, statin and nitro paste PRN additional pain. Cardiology for additional recommendations in am. DO Anderson
[2022-08-11] MEDS ORDERED: ATORVASTATIN 40 MG TAB PO SCH (19:00)
--- NOTE | 2022-08-11 20:05 | Ultrasound Report ---
US gallbladder CLINICAL HISTORY: epigastric abd pain TECHNIQUE: Multiple real-time sonographic images of the right upper quadrant were obtained. Comparison: None available at the time of this dictation. FINDINGS: The liver is diffusely homogenous with normal contour and echogenicity. No focal mass lesions are see n. No intrahepatic ductal dilatation is seen. No gallstones or sludge are identified within the g allbladder. The gallbladder wall is not thickened. There is no pericholecystic fluid present. A sonog raphic Lovell's sign was not elicited by the interpretative dancer. The common duct measures 0.5 cm in diamet er at the level of the hepatic artery. The visualized portions of the pancreas appear normal. The right kidney shows normal echogenicity, cortical thickness and renal contour. The right kidney sh ows no evidence of hydronephrosis or mass. No ascites or free fluid is seen in Seals's pouch. IMPRESSION: Unremarkable right upper quadrant ultrasound. ACT 112: Negative or not required by law. Electronically signed by: Hugo Gold M.D. 08/11/2022 8:03 PM
[2022-08-11] MEDS ORDERED: NITROGLYCERIN SL 0.4 MG/TAB TAB SL PRN (20:51)
[2022-08-11] MEDS ORDERED: buPROPion SR 100 MG TABCR PO SCH (21:00)
[2022-08-11] MEDS ORDERED: ACETAMINOPHEN 325 MG TAB PO PRN (21:54)
[2022-08-11] MEDS ORDERED: LACTATED RINGER'S 1,000 ML IV ONE (21:55)
[2022-08-11] MEDS ORDERED: oxyCODONE HCL IR 5 MG TAB (IMMEDIATE RELEASE) PO PRN (21:57)
[2022-08-11 23:39] LABS: Partial Thromboplastin Ratio 0.9
[2022-08-12] MEDS ORDERED: LEVOTHYROXINE SODIUM 100 MCG TABLET PO SCH (06:30)
[2022-08-12 06:47] LABS: Hematocrit (blood only) 38.6 % (37.0-47.0); Hemoglobin 13.2 g/dl (12.0-16.0); Mean Corpuscular Hemoglobin 30.4 pg (25.0-34.0); Mean Corpuscular Hgb Conc 34.2 g/dL (32.0-36.0); Mean Corpuscular Volume 88.9 fL (80.0-100.0); Mean Platelet Volume 10.3 fL (9.4-12.4); Platelet Count 221 K/uL (130-400); RDW Coefficient of Variation 12.9 % (11.5-14.5); RDW Standard Deviation 42.4 fL (36.4-46.3); Red Blood Count 4.34 M/uL (4.20-5.40); White Blood Count 4.19 K/ul (4.8-10.8)
[2022-08-12 07:05] LABS: Albumin Globulin Ratio 1.5 (0.9-2); Bilirubin,Total 1.1 mg/dl (0.2-1.0); Calcium 8.5 mg/dl (8.6-10.3); Chol HDL Ratio 2.2 (0-5); Creatinine Clr Calc Pharmacy 109.9 ml/min; Est GFR (African American) 110.7 ml/min; Est GFR (Non-African American) 95.5 ml/min; Globulin 2.6 gm/dl (2.5-4.0); Potassium 3.9 mmol/L (3.5-5.1); Total Protein 6.6 gm/dl (6.0-8.3)
[2022-08-12] MEDS ORDERED: CITALOPRAM 20 MG TAB PO SCH (09:00)
[2022-08-12] MEDS ORDERED: ASPIRIN 81 MG ECTAB PO SCH (09:00)
[2022-08-12] MEDS ORDERED: MULTIVITAMIN TAB PO SCH (09:00)
[2022-08-12] MEDS ORDERED: buPROPion SR 100 MG TABCR PO SCH (09:00)
[2022-08-12] MEDS ORDERED: ATORVASTATIN 40 MG TAB PO SCH (09:00)
--- NOTE | 2022-08-12 11:19 | Cardiology Consultation ---
Date of Consultation August 12, 2022 Assessment & Plan (1) Chest pain: - The patient presented to the emergency department with concerns that her symptoms were reminiscent of her non-ST segment elevation myocardial infarction that occurred in 2020. -Serial EKG and high-sensitivity troponin measurements reassuring thus far. -Resting echocardiogram revealed normal wall motion, normal LVEF. -Proceed with stress echocardiogram. (2) Dyslipidemia: - Continue atorvastatin 80 mg daily. (3) Abnormal LFTs: - Mild elevation in liver function test, with total bilirubin 1.1, AST 38, ALT 82 units/L. Previous liver function test performed August, as an outpatient within normal limits. Gallbladder ultrasound within normal limits. -Continue atorvastatin. Defer further work-up to hospitalist. Most prudent course would be to continue her atorvastatin, and have a repeat lipid panel as an outpatient in a few weeks. History of Present Illness Attending Physician: Jami Silveira MD History of Present Illness Aspen Mcbride is a 56-year-old female seen in cardiology consultation per the request of Tree Landon PA-C of the [facility] service for the evaluation of chest discomfort. The patient notes being in her normal state of health until yesterday when she started having waxing and waning sensation of chest pressure while at work. This persisted throughout the day, ultimately she presented to the emergency room and she feels like things improved after she received a second dose of sublingual nitroglycerin. She slept well last night, and feels well this morning. Serial EKG tracings are without acute ST changes. High-sensitivity troponin negative x3. Her cardiac history dates back to October, when she presented with chest discomfort and was found to have a non-ST segment elevation myocardial infarction, with troponin I is level peaking at 15.3 NG per mL. She was seen in cardiology consultation by Dr. Johnson of our practice at that time. Echocardiogram revealed subtle hypokinesis of the basal inferior wall and apex with preserved ejection fraction, with suggestion of apical hypokinesis on left ventriculogram at the time cardiac catheterization. Cardiac catheterization revealed a smooth 40% narrowing of the proximal left anterior descending coronary artery and a 75% stenosis in an obtuse marginal branch. In the meantime she has been treated medically, having completed a 3-month course of clopidogrel, and remains on aspirin 81 mg daily, atorvastatin 80 mg daily. Her most recent lipid panel performed as an outpatient on 02/01/2022 revealed an LDL cholesterol level of 74 mg/dL. Allergies Allergy/AdvReac Type Severity Reaction Status Date / Time No Known Allergies Allergy Verified 05/16/21 19:35 Home Medications Medication Instructions Recorded Confirmed Type multivitamin 1 tab PO DAILY #30 tabs 11/05/18 08/11/22 Rx bupropion HCl 200 mg tablet,12 hr 200 mg PO BID #180 ea 02/29/20 08/11/22 Rx sustained-release aspirin 81 mg tablet,delayed 81 mg PO QAM #30 tabs 10/23/20 08/11/22 Rx release nitroglycerin 0.4 mg sublingual 0.4 mg sublingual Q5M PRN chest 10/23/20 08/11/22 Rx tablet (Nitrostat) pain #30 tabs atorvastatin 80 mg tablet 80 mg PO QPM 08/11/22 08/11/22 History citalopram 10 mg tablet 10 mg PO DAILY 08/11/22 08/11/22 History levothyroxine 100 mcg tablet 100 mcg PO DAILYBB 08/11/22 08/11/22 History Patient History Medical History Acute non-ST elevation myocardial infarction (NSTEMI) Anemia Anxiety Chronic venous insufficiency Dyslipidemia Endometrial thickening on ultrasound Generalized osteoarthritis Hypothyroidism Post-menopausal bleeding Surgical History H/O dilation and curettage Family History Sister Diabetes Father Lung cancer Uncle Myocardial infarction Mother Heart disease complication during pacemaker placement Other Cancer Depression Denies family history of Ovarian cancer Prostate cancer Breast cancer Colorectal cancer Social History Smoking Status: Never smoker Second Hand Exposure: No; Hx Alcohol Use: No Hx Substance Use: No Preferred Language: [place] Citizen Communication Ability: Effective Visual Impairment: No Limitations Hearing Ability: Normal Bottle Machine Operator Required: No Beliefs That Will Affect Care: None marital status: Current Living Situation: Spouse current occupational status: employed current occupation: Works at [employer] Feels Safe at Home: Yes Childhood Exposure to Second-Hand Smoke: Yes Dental Care, Regularly: Yes Physical Activity Frequency: Daily Seatbelt Use: always Sunscreen Use: No Assistive Devices: None Review of Systems Review of Systems: All systems reviewed & are unremarkable except as noted in HPI & below Physical Exam Constitutional: WD/WN, vitals as above Eyes: PERRL, conjunctivae normal, anicteric sclerae Respiratory: normal respiratory effort, lungs clear to auscultation Cardiovascular: RRR, no murmur, no edema Gastrointestinal (Abdomen): normal bowel sounds, soft, nontender, no hepatosplenomegaly Neurologic: PERRL, EOMI, accommodation nl, no face palsy, no dysarthria Psychiatric: A+Ox3, euthymic affect Results & Data Vital Signs (Past 12 Hours) Vital Signs Temp Pulse Pulse Resp BP Pulse Ox O2 Del Method 08/12/22 07:00 53 L 08/12/22 08:58 37.2 C 61 17 133/72 96 Room Air 08/12/22 02:43 37 C 55 L 19 130/64 96 Room Air 08/11/22 23:31 37.1 C 58 L 16 110/62 95 Room Air Laboratory Results Cardiac Enzymes 08/11/22 08/11/22 08/11/22 Range/Units 15:58 19:29 22:36 AST 50 H (13-39) U/L Troponin I High Sens 5.1 13.0 D 12.2 (0-14) pg/ml 08/12/22 Range/Units 06:18 AST 38 (13-39) U/L Troponin I High Sens (0-14) pg/ml Coagulation 08/11/22 Range/Units 22:36 APTT 25.0 (21.0-31.0) Seconds Lipids 08/12/22 Range/Units 06:18 Triglycerides 53 (0-150) mg/dl Cholesterol 143 (0-200) mg/dl HDL Cholesterol 65 mg/dl Cholesterol/HDL Ratio 2.2 (0-5) CBC 08/11/22 08/12/22 Range/Units 15:57 06:18 WBC 5.91 4.19 L (4.8-10.8) K/ul RBC 4.61 4.34 (4.20-5.40) M/uL Hgb 14.0 13.2 (12.0-16.0) g/dl Hct 41.3 38.6 (37.0-47.0) % Plt Count 249 221 (130-400) K/uL Neut # (Auto) 3.54 (1.40-6.50) K/uL Lymph # (Auto) 1.77 (1.2-3.4) K/uL [place] # (Auto) 0.53 (0.11-0.59) K/uL Eos # (Auto) 0.02 (0-0.50) K/uL Baso # (Auto) 0.04 (0-0.2) K/uL Comprehensive Metabolic Panel 08/11/22 08/12/22 Range/Units 15:58 06:18 Sodium 138 140 (136-145) mmol/L Potassium 3.8 3.9 (3.5-5.1) mmol/L Chloride 105 108 H (98-107) mmol/L Carbon Dioxide 23 26 (21-32) mmol/L BUN 18 14 (6-23) mg/dl Creatinine 0.77 0.70 (0.6-1.2) mg/dl Glucose 112 H 97 (70-99(Fasting)) mg/dl Calcium 9.4 8.5 L (8.6-10.3) mg/dl AST 50 H 38 (13-39) U/L ALT 105 H 82 H (7-52) U/L Alkaline Phosphatase 54 47 (34-104) U/L Total Protein 7.6 6.6 (6.0-8.3) gm/dl Albumin 4.7 4.0 (3.4-5.0) gm/dl Intake and Output 08/11/22 08/12/22 08/12/22 22:59 06:59 14:59 Other: Other Intake Source sips SIPS Weight 81.9 kg 89.1 kg Weight Measurement Method Standing Scale LDL cholesterol as measured on 08/12/2022 was 67 mg/dL Diagnostic Findings EKG performed this at 5:20 AM and reviewed independently: Sinus rhythm at 70 bpm with 1 noted PVC, incomplete right bundle branch block, compared to the 3 previous tracings performed this admission, a PVC is now noted. No significant ST depression.
--- NOTE | 2022-08-12 12:50 | Communication Note ---
Date of Service: August 12, 2022 Full procedure report to follow: The exercise stress echocardiogram was negative for ischemia. Presenting symptoms were not reproduced with exercise. Premature ventricular contractions were noted at low levels of exercise that became less frequent at peak stress and returned to their baseline frequency in the post exercise recovery interval. No additional cardiac testing is felt to be indicated at present. Continue current treatment with aspirin 81 mg daily, atorvastatin 80 mg daily.
--- NOTE | 2022-08-12 14:42 | Hospitalist Progress Note ---
Date of Service August 12, 2022 Assessment & Plan (1) Unstable angina: Plan: 56 y/o female with hx of NSTEMI in 2020 when she presented with substernal CP, initial troponin negative but repeat elevated, who underwent cardiac cath that showed smooth 40% proximal LAD narrowing, 75% narrowing distal circumflex marginal branch and has since been managed medically who now presents with recurrent substernal chest pain/heaviness/pressure, similar to prior [place]. Chest pain mostly relieved by nitro. Initial troponin negative. Also noted to have mild transaminitis in the ED though denies GI symptoms such as abdominal pain, vomiting, diarrhea, prior hx of gallbladder issues. -Chest pain over precordium happens to be nonexertional with radiation to the left shoulder area without any associated symptoms of shortness of breath and her palpitation -Serial troponins were unremarkable -Serial EKGs did not show any change compatible with ACS -Appreciate cardiology input and recommendation -Negative stress echocardiogram which did not show any ischemia -Lipid profile is unremarkable -She will be discharged home this afternoon (2) Abnormal LFTs: Plan: Repeat in AM - last LFTs done outpatient appear to be from August 2021 and were normal U/S pending--Ultrasound of the right upper quadrant was unremarkable LFTs improved (3) History of non-ST elevation myocardial infarction (NSTEMI): Plan: No evidence of ischemic pain (4) Dyslipidemia: Plan: Continue current medications (5) Hypothyroidism: Plan: Continue supplement (6) Anxiety: Plan Continue other home medications as appropriate Code Status: Full Code DVT Prophylaxis: Lovenox Remained medically stable following stress echo and the patient was sent home in a good medical condition Admission and Anticipated Discharge Date Admission Date: August 11, 2022 Subjective 08/12/2022 The patient was seen in medical telemetry unit She was admitted with atypical chest pain and was ruled out for ACS She had a negative stress echo and her symptoms resolved She will be discharged home this afternoon Review of Systems Review of Systems: All systems reviewed and are unremarkable except as noted below Respiratory: No shortness of breath Cardiovascular: Additional Comments: No chest pain and her palpitation Physical Exam Physical Exam: Lying in bed comfortably Constitutional: well developed and well nourished; not ill appearing Eyes: PERRL, conjunctivae normal, anicteric sclerae ENMT: external ear and nose normal, oropharynx normal Neck: trachea midline, no thyromegaly Respiratory: no respiratory distress Auscultation: lungs clear to auscultation bilaterally Cardiovascular: Rate/Rhythm: regular rate and regular rhythm; not tachycardic Heart Sounds: normal S1 and normal S2; no murmur Extremities: no edema Gastrointestinal (Abdomen): Inspection/Auscultation: normal bowel sounds; abdomen not distended Percussion/Palpation: abdomen soft; abdomen nontender Musculoskeletal: No acute arthritis involving any joint Neurologic: normal touch/pain/proprioception and moves all extremities; no focal motor deficits Psychiatric: A+Ox3, euthymic affect Lymphatic: no cervical or axillary lymphadenopathy Results & Data Results & Data Vital Signs (Past 12 Hours) Vital Signs Temp Pulse Pulse Resp BP Pulse Ox O2 Del Method 08/12/22 12:07 37.0 C 58 L 18 145/80 H 97 Room Air 08/12/22 07:00 53 L 08/12/22 08:58 37.2 C 61 17 133/72 96 Room Air 08/12/22 02:43 37 C 55 L 19 130/64 96 Room Air Laboratory Results Short CBC 08/11/22 08/12/22 Range/Units 15:57 06:18 WBC 5.91 4.19 L (4.8-10.8) K/ul Hgb 14.0 13.2 (12.0-16.0) g/dl Hct 41.3 38.6 (37.0-47.0) % Plt Count 249 221 (130-400) K/uL BMP 08/11/22 08/12/22 15:58 06:18 Sodium 138 140 Potassium 3.8 3.9 Chloride 105 108 H Carbon Dioxide 23 26 BUN 18 14 Creatinine 0.77 0.70 Glucose 112 H 97 Calcium 9.4 8.5 L Liver Function 08/11/22 08/12/22 Range/Units 15:58 06:18 Total Bilirubin 1.1 H 1.1 H (0.2-1.0) mg/dl AST 50 H 38 (13-39) U/L ALT 105 H 82 H (7-52) U/L Alkaline Phosphatase 54 47 (34-104) U/L Albumin 4.7 4.0 (3.4-5.0) gm/dl Medications Administered Current Inpatient Medications Acetaminophen (Acetaminophen 325 Mg Tab) 650 mg PO Q6H PRN PRN Reason: Fever/pain Stop: 09/10/22 21:53 Al Hydrox/Mg Hydrox/Simethicone (Aluminum/Magnesium Susp 30 Ml Udc) 15 ml PO Q4H PRN PRN Reason: Dyspepsia Stop: 09/10/22 17:27 Aspirin (Aspirin 81 Mg Ectab) 81 mg PO QAM [facility] Stop: 09/11/22 08:59 Last Admin: 08/12/22 10:06 Dose: 81 mg Atorvastatin Calcium (Atorvastatin 40 Mg Tab) 80 mg PO DAILY [facility] Stop: 09/11/22 08:59 Last Admin: 08/12/22 09:33 Dose: 80 mg Bupropion HCl (Bupropion Sr 100 Mg Tabcr) 200 mg PO BID [facility] Stop: 09/11/22 08:59 Last Admin: 08/12/22 09:33 Dose: 200 mg Citalopram Hydrobromide (Citalopram 20 Mg Tab) 10 mg PO DAILY [facility] Stop: 09/11/22 08:59 Last Admin: 08/12/22 10:05 Dose: 10 mg Levothyroxine Sodium (Levothyroxine Sodium 100 Mcg Tablet) 100 mcg PO DAILYBB [facility] Stop: 09/11/22 06:29 Last Admin: 08/12/22 06:06 Dose: 100 mcg Magnesium Hydroxide (Magnesium Hydroxide Susp 30 Ml Udc) 30 ml PO Q12H PRN PRN Reason: Constipation Stop: 09/10/22 17:27 Multivitamins (Multivitamin Tab) 1 tab PO DAILY [facility] Stop: 09/11/22 08:59 Last Admin: 08/12/22 10:06 Dose: 1 tab Nitroglycerin (Nitroglycerin Sl 0.4 Mg/Tab Tab) 0.4 mg SL Q5M PRN PRN Reason: chest pain Stop: 09/10/22 20:50 Last Admin: 08/11/22 21:59 Dose: 0.4 mg Ondansetron HCl (Ondansetron Inj 2 Mg/Ml 2 Ml Vial) 4 mg IV Q6H PRN PRN Reason: Nausea Stop: 09/10/22 17:27 Oxycodone HCl (Oxycodone Hcl Ir 5 Mg Tab (Immediate Release)) 5 mg PO Q4H PRN PRN Reason: Pain Stop: 08/25/22 21:56 Polyethylene Glycol (Polyethylene (Miralax) 17 Gm Pack) 17 gm PO DAILY PRN PRN Reason: Constipation Stop: 09/10/22 17:27
--- NOTE | 2022-08-13 06:10 | Electrocardiogram Report ---
Test Reason : Blood Pressure : / mmHG Vent. Rate : 089 BPM Atrial Rate : 089 BPM P-R Int : 140 ms QRS Dur : 104 ms QT Int : 392 ms P-R-T Axes : 078 083 060 degrees QTc Int : 477 ms Poor data quality, interpretation may be adversely affected Normal sinus rhythm Possible Left atrial enlargement Incomplete right bundle branch block Nonspecific ST abnormality Abnormal ECG When compared with ECG of 16-MAY-2021 17:57, No significant change Confirmed by Ousmane Yancey ([id number]) on 08/13/2022 6:10:26 AM Referred By: Confirmed By:Ousmane Yancey
--- NOTE | 2022-08-13 06:12 | Electrocardiogram Report ---
Test Reason : Blood Pressure : / mmHG Vent. Rate : 057 BPM Atrial Rate : 057 BPM P-R Int : 166 ms QRS Dur : 108 ms QT Int : 438 ms P-R-T Axes : 052 062 076 degrees QTc Int : 426 ms Sinus bradycardia Incomplete right bundle branch block Nonspecific T wave abnormality When compared with ECG of 11-AUG-2022 15:48, Vent. rate has decreased BY 32 BPM Confirmed by Ousmane Yancey ([id number]) on 08/13/2022 6:12:34 AM Referred By: REFERRED SELF Confirmed By:Ousmane Yancey
--- NOTE | 2022-08-13 09:02 | Discharge Summary ---
Date of Service August 13, 2022 Admission HPI Per Admitting Provider This ernie 56 y/o female with prior NSTEMI in 2020, cath without high-grade obstruction in the LAD so being medically managed, hypothyroidism, anxiety, and hyperlipidemia who presents to the ED today with substernal chest pain radiating to her left shoulder. Pt states she was at work, not doing anything strenuous, when she had the sudden onset of chest pressure/heaviness/discomfort in the substernal region that radiated to her left shoulder. This pain does fell similar to prior [place]. She had associated sensation of racing heart, dizziness, nausea, diaphoresis and transient blurred vision. In the ED, she was given sublingual nitro and aspirin with significant improvement in the chest pain. She reports minimal residual discomfort at present. She denies vomiting, [place], recent URI symptoms. She last saw cardiology in July 2022 for routine follow-up and was doing well. She had symptoms of atypical chest pain last fall for which she had an updated ECHO that showed a subtle wall motion abnormality in the inferior wall base that was unchanged from previous. She is no longer on a beta-etta or lisinopril due to low resting heart and borderline BP. Admission Exam Per Admitting Provider Constitutional: well developed and well nourished; no acute distress Eyes: + anicteric sclerae Neck: trachea midline Respiratory: no respiratory distress and no labored breathing Auscultation: lungs clear to auscultation bilaterally; no rales, no rhonchi and no wheezes Cardiovascular: Rate/Rhythm: regular rate and regular rhythm Heart Sounds: no murmur Vessels: dorsalis pedis pulses present and radial pulses present Extremities: no pedal edema Gastrointestinal (Abdomen): Inspection/Auscultation: normal bowel sounds; abdomen not distended Percussion/Palpation: abdomen soft; abdomen nontender Musculoskeletal: Head/Neck/Chest: normocephalic, head atraumatic and neck supple Skin: no jaundice Neurologic: moves all extremities; no focal motor deficits and not confused Psychiatric: Orientation: alert and oriented x 3 Principal Diagnosis Chest pain-no ACS, negative stress echo, hypothyroidism, mildly elevated liver enzymes Discharge Exam Lying in bed comfortably Constitutional well developed and well nourished; not ill appearing Eyes PERRL, conjunctivae normal, anicteric sclerae ENMT external ear and nose normal, oropharynx normal Neck trachea midline, no thyromegaly Respiratory no respiratory distress Auscultation: lungs clear to auscultation bilaterally Cardiovascular Rate/Rhythm: regular rate and regular rhythm; not tachycardic Heart Sounds: normal S1 and normal S2; no murmur Extremities: no edema Gastrointestinal (Abdomen) Inspection/Auscultation: normal bowel sounds; abdomen not distended Percussion/Palpation: abdomen soft; abdomen nontender Neurologic normal touch/pain/proprioception and moves all extremities; no focal motor deficits Psychiatric A+Ox3, euthymic affect Lymphatic no cervical or axillary lymphadenopathy Discharge Data Allergies Allergy/AdvReac Type Severity Reaction Status Date / Time No Known Allergies Allergy Verified 05/16/21 19:35 Consultations 08/11/22 17:35 ED Decision to Admit Stat 08/11/22 20:51 Consult Cardiology Routine Ordered Studies 08/11/22 17:15 gallbladder Stat Hospital Course (1) Unstable angina: 56 y/o female with hx of NSTEMI in 2020 when she presented with substernal CP, initial troponin negative but repeat elevated, who underwent cardiac cath that showed smooth 40% proximal LAD narrowing, 75% narrowing distal circumflex marginal branch and has since been managed medically who now presents with recurrent substernal chest pain/heaviness/pressure, similar to prior [place]. Chest pain mostly relieved by nitro. Initial troponin negative. Also noted to have mild transaminitis in the ED though denies GI symptoms such as abdominal pain, vomiting, diarrhea, prior hx of gallbladder issues. -Chest pain over precordium happens to be nonexertional with radiation to the left shoulder area without any associated symptoms of shortness of breath and her palpitation -Serial troponins were unremarkable -Serial EKGs did not show any change compatible with ACS -Appreciate cardiology input and recommendation -Negative stress echocardiogram which did not show any ischemia -Lipid profile is unremarkable -She will be discharged home this afternoon (2) Abnormal LFTs: Repeat in AM - last LFTs done outpatient appear to be from August 2021 and were normal U/S pending--Ultrasound of the right upper quadrant was unremarkable LFTs improved (3) History of non-ST elevation myocardial infarction (NSTEMI): No evidence of ischemic pain (4) Dyslipidemia: Continue current medications (5) Hypothyroidism: Continue supplement (6) Anxiety: Plan Continue other home medications as appropriate Code Status: Full Code DVT Prophylaxis: Lovenox Remained medically stable following stress echo and the patient was sent home in a good medical condition Total Time Total Time Spent Total Time Spent (In Minutes): 35 minutes Discharge Plan Discharge Items Patient Disposition: Home - Self-Care Reason For Visit: CHEST PAIN Discharge Diagnosis: Chest pain-no ACS, negative stress echo, hypothyroidism, mildly elevated liver enzymes Condition on Discharge: Good Activity: Resume your previous activity Non-emergency contact: Primary Care Provider Call non-emergency contact if: you have any medication questions and your symptoms worsen Follow-up/Referrals: Monserrat Ingram MD [Primary Care Provider] - (Date & Time 08/15/2022 11:00 AM Provider Monserrat Ingram MD Department General Internal Medicine [facility] ) Diet: Heart Healthy Addtl Attending Provider Instructions: Please take precautions to avoid fall No change in new medications Please keep appointment with your healthcare provider Pending Studies at Discharge: No Stand-Alone Forms: My [employer], Smoking Cessation Medications and DC Order Prescriptions: Continued multivitamin tablet 1 tab PO DAILY Qty: 30 0RF bupropion HCl 200 mg tablet sustained-release 12 hr 200 mg PO BID Qty: 180 3RF citalopram 10 mg tablet 10 mg PO DAILY levothyroxine 100 mcg tablet 100 mcg PO DAILYBB atorvastatin 80 mg tablet 80 mg PO QPM nitroglycerin [Nitrostat] 0.4 mg Tablet, Sublingual 0.4 mg sublingual Q5M PRN (Reason: chest pain) Qty: 30 0RF aspirin 81 mg Tablet,Delayed Release (Dr/Ec) 81 mg PO QAM Qty: 30 0RF Discharge Orders: Discharge Order (Routine); Ordered 08/12/22 Ordered By: Jami Silveira Admission Data Admit Date/Time: 08/11/22 17:28 Attending Provider: Jami Silveira Admit Provider: Demetria Barron Primary Care Provider: Monserrat Ingram Other Providers: Demetria Barron ; Noah Miller Other Interventions: Discharge Summary Assessment (RN) Last Done: 08/12/22 15:30
--- NOTE | 2022-08-13 23:40 | Electrocardiogram Report ---
Test Reason : Blood Pressure : / mmHG Vent. Rate : 065 BPM Atrial Rate : 065 BPM P-R Int : 166 ms QRS Dur : 116 ms QT Int : 430 ms P-R-T Axes : 068 053 083 degrees QTc Int : 447 ms Normal sinus rhythm Incomplete right bundle branch block Nonspecific T wave abnormality When compared with ECG of 11-AUG-2022 16:55, No significant change was found Confirmed by Ousmane Yancey ([id number]) on 08/13/2022 11:40:38 PM Referred By: REFERRED SELF Confirmed By:Ousmane Yancey
--- NOTE | 2022-08-13 23:45 | Electrocardiogram Report ---
Test Reason : Blood Pressure : / mmHG Vent. Rate : 070 BPM Atrial Rate : 070 BPM P-R Int : 166 ms QRS Dur : 106 ms QT Int : 408 ms P-R-T Axes : 076 063 075 degrees QTc Int : 440 ms Sinus rhythm with occasional Premature ventricular complexes Incomplete right bundle branch block Borderline ECG When compared with ECG of 11-AUG-2022 22:06, Premature ventricular complexes are now Present Confirmed by Ousmane Yancey ([id number]) on 08/13/2022 11:45:19 PM Referred By: REFERRED SELF Confirmed By:Ousmane Yancey
== END 2022-08-12 17:53 | disposition home or self-care (01) | DRG 303 ==
LOC: ED 15:30 → SUATTDRO 17:28 → 2N 17:28